=== PATIENT | male | born 1965 | race Hispanic/Latino ===

== ENCOUNTER → 2018-10-19 | Outpatient (REF) | payer OTHER, MEDICAID ==
[2018-10-19 18:09] LABS: BASO % 0.4 % (0.0-1.0); EOS # 0.2 10^3/uL (0.0-0.50); EOS % 2.8 % (0.0-3.0); HEMATOCRIT 41.5 % (42.0-52.0); HEMOGLOBIN 14.5 g/dl (13.5-17.5); LYMPH # 1.8 10^3/uL (1.5-4.5); LYMPH % 25.1 % (24.0-44.0); MEAN CORPUSCULAR HGB CONC 34.9 g/dl (32.0-36.5); MEAN CORPUSCULAR VOLUME 85.7 fl (80.0-96.0); MONO # 0.5 10^3/uL (0.0-0.8); MONO % 6.6 % (0.0-5.0); NEUTROPHILS # 4.7 10^3/uL (1.8-7.7); NEUTROPHILS % 64.7 % (36.0-66.0); PLATELET COUNT, AUTOMATED 204 10^3/uL (150-450); RED BLOOD COUNT 4.84 10^6/uL (4.30-6.10); WHITE BLOOD COUNT 7.2 10^3/uL (4.0-10.0)
[2018-10-19 18:18] LABS: ALBUMIN 3.6 GM/DL (3.2-5.2); ALT/SGPT 25 U/L (12-78); BILIRUBIN,TOTAL 0.5 MG/DL (0.2-1.0); BLOOD UREA NITROGEN 18 MG/DL (7-18); CALCIUM LEVEL 9.1 MG/DL (8.5-10.1); CARBON DIOXIDE LEVEL 27 MEQ/L (21-32); CHLORIDE LEVEL 102 MEQ/L (98-107); CHOLESTEROL LEVEL 313 MG/DL (<200); CHOLESTEROL RISK RATIO 8.236 (<5); CREATININE FOR GFR 0.86 MG/DL (0.70-1.30); FREE T4 1.08 NG/DL (0.76-1.46); GLOMERULAR FILTRATION RATE > 60.0 (>56); GLUCOSE, FASTING 280 MG/DL (70-100); HDL CHOLESTEROL 38 MG/DL (>40); LDL CHOLESTEROL 250 MG/DL (<100); NON-HDL-C 275 MG/DL; POTASSIUM SERUM 4.3 MEQ/L (3.5-5.1); SODIUM LEVEL 134 MEQ/L (136-145); TOTAL 25(OH) VITAMIN D 29.7 NG/ML (30.0-100.0); TOTAL PROTEIN 7.3 GM/DL (6.4-8.2); TRIGLYCERIDES LEVEL 127 MG/DL (<150)
[2018-10-19 18:34] LABS: HEMOGLOBIN A1c 11.5 %
== END ==
LOC: M LAB REF 17:34
PROVIDERS: ATTEND Nurse Practitioner Family
DX: Z00.01 Encounter for general adult medical examination with abnormal findings (principal)

== ENCOUNTER → 2019-01-18 | Outpatient (REF) | payer OTHER, MEDICAID ==
[2019-01-18 17:38] LABS: ALBUMIN 3.8 GM/DL (3.2-5.2); ALT/SGPT 25 U/L (12-78); BILIRUBIN,TOTAL 0.6 MG/DL (0.2-1.0); BLOOD UREA NITROGEN 17 MG/DL (7-18); CALCIUM LEVEL 9.4 MG/DL (8.5-10.1); CARBON DIOXIDE LEVEL 26 MEQ/L (21-32); CHLORIDE LEVEL 103 MEQ/L (98-107); CHOLESTEROL LEVEL 307 MG/DL (<200); CHOLESTEROL RISK RATIO 7.675 (<5); CREATININE FOR GFR 0.88 MG/DL (0.70-1.30); GLOMERULAR FILTRATION RATE > 60.0 (>56); GLUCOSE, FASTING 241 MG/DL (70-100); HDL CHOLESTEROL 40 MG/DL (>40); LDL CHOLESTEROL 253 MG/DL (<100); NON-HDL-C 267 MG/DL; POTASSIUM SERUM 4.3 MEQ/L (3.5-5.1); SODIUM LEVEL 136 MEQ/L (136-145); TOTAL PROTEIN 7.5 GM/DL (6.4-8.2); TRIGLYCERIDES LEVEL 70 MG/DL (<150)
[2019-01-18 17:48] LABS: HEMOGLOBIN A1c 10.2 %
== END ==
LOC: M LAB REF 16:25
PROVIDERS: ATTEND Nurse Practitioner Family
DX: Z00.01 Encounter for general adult medical examination with abnormal findings (principal)

== ENCOUNTER → 2019-03-23 | Outpatient (CLI) | payer MEDICAID | LOC: M OUTALCOH 07:59 | PROVIDERS: ATTEND Psychiatry & Neurology Addiction Medicine | DX: F10.10 Alcohol abuse, uncomplicated (principal) ==

== ENCOUNTER 2019-03-29 08:05 | Outpatient (RCR) | payer MEDICAID | END 2019-04-22 | LOC: M OUTALCOH 08:05 | PROVIDERS: ATTEND Psychiatry & Neurology Addiction Medicine | DX: F10.10 Alcohol abuse, uncomplicated (principal) ==

== ENCOUNTER → 2019-04-19 | Outpatient (REF) | payer MEDICAID ==
[2019-04-19 13:22] LABS: ALBUMIN 3.9 GM/DL (3.2-5.2); ALT/SGPT 32 U/L (12-78); BILIRUBIN,TOTAL 0.5 MG/DL (0.2-1.0); BLOOD UREA NITROGEN 13 MG/DL (7-18); CALCIUM LEVEL 9.1 MG/DL (8.5-10.1); CARBON DIOXIDE LEVEL 29 MEQ/L (21-32); CHLORIDE LEVEL 106 MEQ/L (98-107); CHOLESTEROL LEVEL 221 MG/DL (<200); CHOLESTEROL RISK RATIO 6.906 (<5); CREATININE FOR GFR 0.84 MG/DL (0.70-1.30); GLOMERULAR FILTRATION RATE > 60.0 (>56); GLUCOSE, FASTING 115 MG/DL (70-100); HDL CHOLESTEROL 32 MG/DL (>40); LDL CHOLESTEROL 172 MG/DL (<100); NON-HDL-C 189 MG/DL; POTASSIUM SERUM 4.1 MEQ/L (3.5-5.1); SODIUM LEVEL 139 MEQ/L (136-145); TOTAL PROTEIN 7.1 GM/DL (6.4-8.2); TRIGLYCERIDES LEVEL 83 MG/DL (<150)
[2019-04-19 13:44] LABS: HEMOGLOBIN A1c 7.9 %
== END ==
LOC: M LAB REF 11:59
PROVIDERS: ATTEND Family Medicine
DX: Z00.01 Encounter for general adult medical examination with abnormal findings (principal)

== ENCOUNTER 2022-03-09 13:56 | Inpatient (IN) | payer MEDICAID, OTHER, SELFPAY ==
[~2022-03-09] VITALS: Ht 167.6 cm; Wt 68.2 kg
[2022-03-09] MEDS ORDERED: BOOSTRIX/ADACEL VACCINE (DIPHTH/PERTUSS/ACELL/TETANUS) 0.5ML SYR IM ONE (19:45)
[2022-03-09] MEDS ORDERED: AMPICILLIN SOD/SULBACTAM SOD 3 GM in D5W MINI-BAG PLUS 100 ML IV ONE (19:45)
[2022-03-09] MEDS ORDERED: ACETAMINOPHEN 325 MG TAB PO ONE (20:00)
[2022-03-09 20:10] LABS: BASO % 0.2 % (0.0-1.0); EOS # 0.1 10^3/uL (0.0-0.5); HEMATOCRIT 32.1 % (42.0-52.0); HEMOGLOBIN 11.1 g/dl (13.5-17.5); LYMPH # 1.9 10^3/uL (1.5-5.0); LYMPH % 17.5 % (24.0-44.0); MEAN CORPUSCULAR HEMOGLOBIN 29.1 pg (27.0-33.0); MEAN CORPUSCULAR HGB CONC 34.6 g/dl (32.0-36.5); MONO # 0.5 10^3/uL (0.0-0.8); MONO % 4.6 % (2.0-8.0); NEUTROPHILS # 8.1 10^3/uL (1.5-8.5); NEUTROPHILS % 76.4 % (36.0-66.0); PLATELET COUNT, AUTOMATED 327 10^3/uL (150-450); RED BLOOD COUNT 3.82 10^6/uL (4.30-6.10); WHITE BLOOD COUNT 10.7 10^3/uL (4.0-10.0)
[2022-03-09 20:17] LABS: ERYTHROCYTE SEDIMENTATION RATE 98 mm/hr (0-20)
[2022-03-09 20:32] LABS: ALBUMIN 2.9 G/DL (3.2-5.2); ALKALINE PHOSPHATASE 144 U/L (46-116); ALT/SGPT 10 U/L (7.0-40); AST/SGOT 12 U/L (<34); BILIRUBIN,DIRECT 0.1 MG/DL (<0.4); BILIRUBIN,TOTAL 0.5 MG/DL (0.3-1.2); BLOOD UREA NITROGEN 27 MG/DL (9-23); CALCIUM LEVEL 8.6 MG/DL (8.5-10.1); CARBON DIOXIDE LEVEL 24 MMOL/L (20-31); CHLORIDE LEVEL 98 MMOL/L (98-107); CREATININE FOR GFR 1.15 MG/DL (0.70-1.30); GLOMERULAR FILTRATION RATE > 60.0 (>56); GLUCOSE, FASTING 209 MG/DL (60-100); POTASSIUM SERUM 4.3 MMOL/L (3.5-5.1); SODIUM LEVEL 132 MMOL/L (136-145); TOTAL PROTEIN 7.1 G/DL (5.7-8.2)
[2022-03-09] MEDS: NS 1,000 ML IV SCH (20:33)
[2022-03-09] MEDS ORDERED: ALEV220T22 PO (20:46)
[2022-03-09] MEDS ORDERED: HOME MED LIST COMPLETE! XX SCH (20:50)
[2022-03-09] MEDS ORDERED: INSULIN LISPRO (NovoLOG) PER UNIT SC SCH (21:00)
[2022-03-09] MEDS ORDERED: MOM 30ML SUSPENSION UDC PO PRN (22:00)
[2022-03-09 22:07] LABS: RSV AMPLIFICATION NEGATIVE (NEGATIVE)
[2022-03-09] MEDS ORDERED: VANCOMYCIN HCL 750 MG, VIAL MATE ADAPTER 1 EACH in D5W 250 ML IV ONE (23:00)
[2022-03-10] MEDS ORDERED: VANCOMYCIN HCL 750 MG, VIAL MATE ADAPTER 1 EACH in D5W 250 ML IV ONE ×3
[2022-03-10] MEDS ORDERED: GLUCOSE 4GM CHEW TABLET PO PRN (01:10)
[2022-03-10] MEDS ORDERED: GLUCAGON INJ 1MG VIAL SC PRN (01:10)
[2022-03-10] MEDS ORDERED: DEXTROSE 50% 50ML SYRINGE IV PRN (01:10)
[2022-03-10] MEDS: NS 1,000 ML IV SCH (01:43)
[2022-03-10] MEDS: VANCOMYCIN HCL 1,000 MG, VIAL MATE ADAPTER 1 EACH in NS 250 ML IV SCH ×2 (05:28→18:49)
[2022-03-10 05:46] VITALS: BP 144/68
[2022-03-10] MEDS: INSULIN LISPRO (NovoLOG) PER UNIT SC SCH ×4 (06:14→23:54)
[2022-03-10 06:19] VITALS: BP 150/67
[2022-03-10 06:58] LABS: HEMATOCRIT 29.8 % (42.0-52.0); MEAN CORPUSCULAR HEMOGLOBIN 29.2 pg (27.0-33.0); MEAN CORPUSCULAR HGB CONC 33.6 g/dl (32.0-36.5); MEAN CORPUSCULAR VOLUME 86.9 fl (80.0-96.0); PLATELET COUNT, AUTOMATED 264 10^3/uL (150-450); RED BLOOD COUNT 3.43 10^6/uL (4.30-6.10); WHITE BLOOD COUNT 8.1 10^3/uL (4.0-10.0)
[2022-03-10] MEDS ORDERED: INSULIN LISPRO (NovoLOG) PER UNIT SC ONE (07:15)
[2022-03-10 07:43] LABS: HEMOGLOBIN A1c 11.3 % (4.0-6.0)
[2022-03-10 08:01] LABS: BLOOD UREA NITROGEN 24 MG/DL (9-23); CALCIUM LEVEL 7.8 MG/DL (8.5-10.1); CARBON DIOXIDE LEVEL 24 MMOL/L (20-31); CHLORIDE LEVEL 100 MMOL/L (98-107); CREATININE FOR GFR 1.12 MG/DL (0.70-1.30); GLOMERULAR FILTRATION RATE > 60.0 (>56); GLUCOSE, FASTING 470 MG/DL (60-100); POTASSIUM SERUM 4.2 MMOL/L (3.5-5.1); SODIUM LEVEL 132 MMOL/L (136-145)
[2022-03-10] MEDS ORDERED: ENOXAPARIN 40MG/0.4ML SYRINGE (J1650 PER 10MG) SC SCH (09:00)
[2022-03-10 13:27] LABS: IRON (FE) 29 UG/DL (65-175); PERCENT SATURATION 12.3 % (19.7-50.0); TOTAL IRON BINDING CAPACITY 236 UG/DL (250-425)
[2022-03-10 13:28] LABS: FERRITIN 96.6 NG/ML (10.5-307.3); FOLATE 9.3 NG/ML (>5.4)
[2022-03-10 13:29] LABS: VITAMIN B12 LEVEL 392 PG/ML (211-911)
[2022-03-10 14:00] VITALS: BP 146/75
[2022-03-10 21:06] VITALS: BP 142/74
[2022-03-10] MEDS: ACETAMINOPHEN TAB 650MG DOSE (2X325MG) PO PRN (21:13)
[2022-03-11] VITALS (9 sets, daily range): BP systolic 129–148; BP diastolic 64–77
[2022-03-11] MEDS: INSULIN LISPRO (NovoLOG) PER UNIT SC SCH ×3 (05:25→16:57)
[2022-03-11 05:43] LABS: BASO % 0.2 % (0.0-1.0); EOS # 0.2 10^3/uL (0.0-0.5); EOS % 2.6 % (0.0-3.0); HEMATOCRIT 27.5 % (42.0-52.0); HEMOGLOBIN 9.2 g/dl (13.5-17.5); LYMPH # 2.1 10^3/uL (1.5-5.0); LYMPH % 23.1 % (24.0-44.0); MEAN CORPUSCULAR HEMOGLOBIN 28.7 pg (27.0-33.0); MEAN CORPUSCULAR HGB CONC 33.5 g/dl (32.0-36.5); MEAN CORPUSCULAR VOLUME 85.7 fl (80.0-96.0); MONO # 0.5 10^3/uL (0.0-0.8); MONO % 5.5 % (2.0-8.0); NEUTROPHILS # 6.1 10^3/uL (1.5-8.5); NEUTROPHILS % 68.3 % (36.0-66.0); PLATELET COUNT, AUTOMATED 255 10^3/uL (150-450); RED BLOOD COUNT 3.21 10^6/uL (4.30-6.10)
[2022-03-11] MEDS: VANCOMYCIN HCL 1,000 MG, VIAL MATE ADAPTER 1 EACH in NS 250 ML IV SCH ×2 (05:57→18:16)
[2022-03-11 06:15] LABS: VANCOMYCIN LEVEL TROUGH 11.6 UG/ML (10.0-20.0)
[2022-03-11 06:16] LABS: BLOOD UREA NITROGEN 16 MG/DL (9-23); CALCIUM LEVEL 8.3 MG/DL (8.5-10.1); CARBON DIOXIDE LEVEL 25 MMOL/L (20-31); CHLORIDE LEVEL 108 MMOL/L (98-107); CREATININE FOR GFR 0.92 MG/DL (0.70-1.30); GLOMERULAR FILTRATION RATE > 60.0 (>56); GLUCOSE, FASTING 120 MG/DL (60-100); POTASSIUM SERUM 4.1 MMOL/L (3.5-5.1); SODIUM LEVEL 139 MMOL/L (136-145)
[2022-03-11] MEDS ORDERED: FERRIC CARBOXYMALTOSE INJ 750 MG, VIAL MATE ADAPTER 1 EACH in NS 250 ML IV ONE (11:00)
[2022-03-11] MEDS ORDERED: LIDOCAINE 2% 100MG/5ML SDV (FOR ANES.) As Ordered ONE (14:27)
[2022-03-11] MEDS ORDERED: fentaNYL 100 MCG/2 ML INJECTION As Ordered ONE (14:27)
[2022-03-11] MEDS ORDERED: KETOROLAC 60MG 2ML VIAL As Ordered ONE (14:27)
[2022-03-11] MEDS ORDERED: propofoL 200 MG/20 ML VIAL As Ordered ONE (14:27)
[2022-03-11] MEDS ORDERED: MIDAZOLAM INJ 2MG/2ML VIAL As Ordered ONE (14:28)
[2022-03-11] MEDS ORDERED: LIDOCAINE 1% MDV 20ML VIAL INJ ONE (16:03)
[2022-03-11] MEDS ORDERED: BUPIVACAINE HCL 0.5% 10ML VIAL XX ONE (16:05)
[2022-03-11] MEDS: ACETAMINOPHEN TAB 650MG DOSE (2X325MG) PO PRN (16:46)
[2022-03-11] MEDS ORDERED: MORPHINE 2 MG/ML 1ML VIAL IV ONE (19:00)
[2022-03-11] MEDS ORDERED: PERCOCET 5MG/325MG TAB PO PRN (19:00)
[2022-03-11] MEDS ORDERED: INSULIN LISPRO (NovoLOG) PER UNIT SC SCH (21:00)
[2022-03-12] MEDS: ACETAMINOPHEN TAB 650MG DOSE (2X325MG) PO PRN (01:19)
[2022-03-12 01:40] VITALS: BP 137/74
[2022-03-12 05:40] VITALS: BP 132/78
[2022-03-12] MEDS: VANCOMYCIN HCL 1,000 MG, VIAL MATE ADAPTER 1 EACH in NS 250 ML IV SCH (05:43)
[2022-03-12] MEDS: PERCOCET 5MG/325MG TAB PO PRN ×2 (05:46→12:03)
[2022-03-12 06:18] LABS: BASO % 0.3 % (0.0-1.0); EOS # 0.3 10^3/uL (0.0-0.5); EOS % 3.7 % (0.0-3.0); HEMATOCRIT 27.2 % (42.0-52.0); HEMOGLOBIN 9.1 g/dl (13.5-17.5); LYMPH # 1.9 10^3/uL (1.5-5.0); LYMPH % 26.5 % (24.0-44.0); MEAN CORPUSCULAR HEMOGLOBIN 29.1 pg (27.0-33.0); MEAN CORPUSCULAR HGB CONC 33.5 g/dl (32.0-36.5); MEAN CORPUSCULAR VOLUME 86.9 fl (80.0-96.0); MONO # 0.5 10^3/uL (0.0-0.8); MONO % 6.8 % (2.0-8.0); NEUTROPHILS # 4.4 10^3/uL (1.5-8.5); NEUTROPHILS % 62.4 % (36.0-66.0); PLATELET COUNT, AUTOMATED 262 10^3/uL (150-450); RED BLOOD COUNT 3.13 10^6/uL (4.30-6.10)
[2022-03-12 06:36] LABS: VANCOMYCIN LEVEL TROUGH 13.4 UG/ML (10.0-20.0)
[2022-03-12 06:37] LABS: BLOOD UREA NITROGEN 23 MG/DL (9-23); CALCIUM LEVEL 8.3 MG/DL (8.5-10.1); CARBON DIOXIDE LEVEL 26 MMOL/L (20-31); CHLORIDE LEVEL 105 MMOL/L (98-107); CREATININE FOR GFR 1.16 MG/DL (0.70-1.30); GLOMERULAR FILTRATION RATE > 60.0 (>56); GLUCOSE, FASTING 107 MG/DL (60-100); POTASSIUM SERUM 4.4 MMOL/L (3.5-5.1); SODIUM LEVEL 135 MMOL/L (136-145)
[2022-03-12] MEDS: INSULIN LISPRO (NovoLOG) PER UNIT SC SCH ×2 (07:30→12:03)
[2022-03-12] MEDS ORDERED: AUGMENTIN 875 MG TAB PO SCH (09:00)
[2022-03-12 09:40] VITALS: BP 150/80
[2022-03-12] MEDS ORDERED: ENOXAPARIN 40MG/0.4ML SYRINGE (J1650 PER 10MG) SC SCH (12:35)
[2022-03-12] MEDS ORDERED: LANC30MI XX (12:45)
[2022-03-12] MEDS ORDERED: IBUP-1114 PO (12:45)
[2022-03-12] MEDS ORDERED: OXYC-517 PO (12:45)
[2022-03-12] MEDS ORDERED: GABA-1171 PO (12:45)
[2022-03-12] MEDS ORDERED: LIDO1PAD TOP (12:45)
[2022-03-12] MEDS ORDERED: INSU100I38 SQ (12:45)
[2022-03-12] MEDS ORDERED: ALCOPAD25 TOP (12:45)
[2022-03-12] MEDS ORDERED: ACET1TAB55 PO (12:45)
[2022-03-12] MEDS ORDERED: GLUC1TES2 XX (12:45)
[2022-03-12] MEDS ORDERED: BLOOKIT21 XX (12:45)
[2022-03-12] MEDS ORDERED: AMOX875T2 PO ×2 (12:45→12:46)
[2022-03-12] MEDS ORDERED: PEN1MIS21 SC (12:45)
[2022-03-12] MEDS ORDERED: METF500T13 PO (12:51)
[2022-03-12 14:00] VITALS: BP 150/79
[2022-03-12] MEDS ORDERED: GABAPENTIN 100 MG CAP PO SCH (16:00)
[2022-03-12] MEDS ORDERED: LEVEMIR (INSULIN DETEMIR) 1 UNITS/0.01ML SC SCH (21:00)
== END 2022-03-12 14:57 | disposition home health service (06) | DRG 314 ==
LOC: M ED 20:13 → M ED INP 21:56 → ENRESERV 03-10 04:44 → M MSPAV 03-10 06:19
PROVIDERS: ADMIT Family Medicine; ATTEND Student in an Organized Health Care Education/Training Program
PROC: 0Y6Y0Z0 Detachment at Left 5th Toe, Complete, Open Approach (ICD-10-PCS; principal; 2022-03-11 15:30)
DX: E11.52 Type 2 diabetes mellitus with diabetic peripheral angiopathy with gangrene (principal); E11.65 Type 2 diabetes mellitus with hyperglycemia; L03.032 Cellulitis of left toe; D50.9 Iron deficiency anemia, unspecified; Z87.891 Personal history of nicotine dependence; Z91.14 Patient's other noncompliance with medication regimen

== ENCOUNTER 2022-04-26 07:55 | Inpatient (IN) | payer MEDICAID, OTHER ==
[~2022-04-26] VITALS: Ht 167.6 cm; Wt 68.6 kg
[~2022-04-26 07:55] MED LIST: ACET1TAB55 PO; ALCOPAD25 TOP; ALEV220T22 PO; AMOX875T2 PO; BLOOKIT21 XX; GABA-1171 PO; GLUC1TES2 XX; IBUP-1114 PO; INSU100I38 SQ; LANC30MI XX; LIDO1PAD TOP; METF500T13 PO; OXYC-517 PO; PEN1MIS21 SC
[2022-04-26 08:37] LABS: BASO % 0.1 % (0.0-1.0); EOS # 0.1 10^3/uL (0.0-0.5); EOS % 1.2 % (0.0-3.0); HEMATOCRIT 27.8 % (42.0-52.0); HEMOGLOBIN 9.2 g/dl (13.5-17.5); LYMPH # 1.3 10^3/uL (1.5-5.0); LYMPH % 17.5 % (24.0-44.0); MEAN CORPUSCULAR HEMOGLOBIN 28.3 pg (27.0-33.0); MEAN CORPUSCULAR HGB CONC 33.1 g/dl (32.0-36.5); MEAN CORPUSCULAR VOLUME 85.5 fl (80.0-96.0); MONO # 0.4 10^3/uL (0.0-0.8); MONO % 5.8 % (2.0-8.0); NEUTROPHILS # 5.7 10^3/uL (1.5-8.5); NEUTROPHILS % 75.3 % (36.0-66.0); PLATELET COUNT, AUTOMATED 336 10^3/uL (150-450); RED BLOOD COUNT 3.25 10^6/uL (4.30-6.10); WHITE BLOOD COUNT 7.6 10^3/uL (4.0-10.0)
[2022-04-26] MEDS ORDERED: GI COCKTAIL 50ML BTL(HYOSCYAMINE/MAALOX/LIDOCAINE VISCOUS)(1:3:1) PO ONE (08:50)
[2022-04-26] MEDS ORDERED: NS 1,000 ML IV ONE (08:50)
[2022-04-26 09:14] LABS: ALBUMIN 2.6 G/DL (3.2-5.2); BILIRUBIN,DIRECT 0.1 MG/DL (<0.4); BILIRUBIN,TOTAL 0.6 MG/DL (0.3-1.2); TOTAL PROTEIN 6.8 G/DL (5.7-8.2)
[2022-04-26] MEDS ORDERED: ISOVUE-370 76% 100ML VIAL As Ordered ONE (09:30)
[2022-04-26] MEDS ORDERED: PIPERACILLIN/TAZOBACTAM SOD 3.375 GM in D5W MINI-BAG PLUS 50 ML IV ONE (12:40)
[2022-04-26] MEDS ORDERED: ONDANSETRON 4MG 2ML VIAL IV ONE (12:55)
[2022-04-26] MEDS ORDERED: MORPHINE 4 MG/ML 1ML VIAL IV ONE (12:55)
[2022-04-26] MEDS ORDERED: MORPHINE 10 MG/ML 1ML VIAL IV PRN (13:05)
[2022-04-26] MEDS ORDERED: DEXTROSE 50% 50ML SYRINGE IV PRN (13:10)
[2022-04-26] MEDS ORDERED: GLUCOSE 4GM CHEW TABLET PO PRN (13:10)
[2022-04-26] MEDS ORDERED: GLUCAGON INJ 1MG VIAL SC PRN (13:10)
[2022-04-26] MEDS: INSULIN LISPRO (NovoLOG) PER UNIT SC SCH ×2 (13:20→18:00)
[2022-04-26 13:43] LABS: RSV AMPLIFICATION NEGATIVE (NEGATIVE)
[2022-04-26] MEDS ORDERED: ACET1TAB55 PO (13:50)
[2022-04-26] MEDS ORDERED: HOME MED LIST COMPLETE! XX SCH (13:50)
[2022-04-26] MEDS ORDERED: METF500T13 PO (13:50)
[2022-04-26] MEDS ORDERED: IBUP1TAB5 PO (13:50)
[2022-04-26 14:58] VITALS: BP 131/83
[2022-04-26 16:56] LABS: CARCINOEMBRYONIC ANTIGEN < 2.0 NG/ML (<2.5)
[2022-04-26 17:11] LABS: CA19-9 TUMOR MARKER,CARBOHYDRA 15.4 U/ML (<35.0)
[2022-04-26] MEDS: PIPERACILLIN/TAZOBACTAM SOD 4.5 GM in D5W MINI-BAG PLUS 50 ML IV SCH (18:04)
[2022-04-26] MEDS: D5W/0.9% SODIUM CHLORIDE 1,000 ML IV SCH (20:10)
[2022-04-26 20:15] VITALS: BP 126/60
[2022-04-27] MEDS: PIPERACILLIN/TAZOBACTAM SOD 4.5 GM in D5W MINI-BAG PLUS 50 ML IV SCH ×3 (02:31→18:31)
[2022-04-27 06:00] VITALS: BP 120/56
[2022-04-27 06:41] LABS: BASO % 0.4 % (0.0-1.0); EOS # 0.2 10^3/uL (0.0-0.5); EOS % 3.8 % (0.0-3.0); HEMATOCRIT 24.2 % (42.0-52.0); HEMOGLOBIN 7.9 g/dl (13.5-17.5); LYMPH # 1.2 10^3/uL (1.5-5.0); LYMPH % 24.4 % (24.0-44.0); MEAN CORPUSCULAR HEMOGLOBIN 28.4 pg (27.0-33.0); MEAN CORPUSCULAR HGB CONC 32.6 g/dl (32.0-36.5); MEAN CORPUSCULAR VOLUME 87.1 fl (80.0-96.0); MONO # 0.3 10^3/uL (0.0-0.8); MONO % 6.1 % (2.0-8.0); NEUTROPHILS # 3.3 10^3/uL (1.5-8.5); NEUTROPHILS % 65.1 % (36.0-66.0); PLATELET COUNT, AUTOMATED 283 10^3/uL (150-450); RED BLOOD COUNT 2.78 10^6/uL (4.30-6.10); WHITE BLOOD COUNT 5.1 10^3/uL (4.0-10.0)
[2022-04-27] MEDS: INSULIN LISPRO (NovoLOG) PER UNIT SC SCH ×5 (06:55→23:41)
[2022-04-27 07:10] LABS: LIPASE 21 U/L (12-53)
[2022-04-27 07:11] LABS: TOTAL IRON BINDING CAPACITY 215 UG/DL (250-425)
[2022-04-27 07:12] LABS: IRON (FE) 21 UG/DL (65-175); PERCENT SATURATION 9.8 % (19.7-50.0)
[2022-04-27 07:26] LABS: ALBUMIN 2.1 G/DL (3.2-5.2); ALKALINE PHOSPHATASE 89 U/L (46-116); ALT/SGPT < 9 U/L (7.0-40); AST/SGOT 10 U/L (<34); BILIRUBIN,DIRECT 0.1 MG/DL (<0.4); BILIRUBIN,TOTAL 0.5 MG/DL (0.3-1.2); BLOOD UREA NITROGEN 14 MG/DL (9-23); CALCIUM LEVEL 7.9 MG/DL (8.5-10.1); CARBON DIOXIDE LEVEL 25 MMOL/L (20-31); CHLORIDE LEVEL 105 MMOL/L (98-107); FERRITIN 126.9 NG/ML (10.5-307.3); FREE THYROXINE INDEX 3.6 % (1.4-3.8); GLOMERULAR FILTRATION RATE > 60.0 (>56); GLUCOSE, FASTING 122 MG/DL (60-100); MAGNESIUM LEVEL 1.9 MG/DL (1.8-2.4); POTASSIUM SERUM 4.2 MMOL/L (3.5-5.1); SODIUM LEVEL 136 MMOL/L (136-145); T UPTAKE 43.5 % (22.5-37.0); THYROID STIMULATING HORMONE 2.116 uIU/ML (0.55-4.78); THYROXINE (T4) 8.3 UG/DL (4.5-10.9)
[2022-04-27] MEDS: D5W/0.9% SODIUM CHLORIDE 1,000 ML IV SCH ×2 (08:48→23:41)
[2022-04-27 09:21] LABS: TOTAL PROTEIN 5.7 G/DL (5.7-8.2)
[2022-04-27 10:06] LABS: HEMOGLOBIN A1c 7.5 % (4.0-6.0)
[2022-04-27 14:00] VITALS: BP 136/77
[2022-04-27 21:30] VITALS: BP 135/72
[2022-04-28] MEDS: PIPERACILLIN/TAZOBACTAM SOD 4.5 GM in D5W MINI-BAG PLUS 50 ML IV SCH ×3 (03:22→21:39)
[2022-04-28 05:20] VITALS: BP 135/70
[2022-04-28] MEDS: INSULIN LISPRO (NovoLOG) PER UNIT SC SCH ×3 (05:46→17:34)
[2022-04-28 06:10] LABS: BASO % 0.4 % (0.0-1.0); EOS # 0.1 10^3/uL (0.0-0.5); EOS % 2.9 % (0.0-3.0); HEMATOCRIT 24.2 % (42.0-52.0); HEMOGLOBIN 8.1 g/dl (13.5-17.5); MEAN CORPUSCULAR HEMOGLOBIN 28.6 pg (27.0-33.0); MEAN CORPUSCULAR HGB CONC 33.5 g/dl (32.0-36.5); MEAN CORPUSCULAR VOLUME 85.5 fl (80.0-96.0); MONO # 0.3 10^3/uL (0.0-0.8); MONO % 5.8 % (2.0-8.0); NEUTROPHILS # 3.2 10^3/uL (1.5-8.5); NEUTROPHILS % 69.7 % (36.0-66.0); PLATELET COUNT, AUTOMATED 290 10^3/uL (150-450); RED BLOOD COUNT 2.83 10^6/uL (4.30-6.10); WHITE BLOOD COUNT 4.5 10^3/uL (4.0-10.0)
[2022-04-28 06:39] LABS: LIPASE 19 U/L (12-53)
[2022-04-28 06:42] LABS: ALBUMIN 2.1 G/DL (3.2-5.2); ALKALINE PHOSPHATASE 85 U/L (46-116); ALT/SGPT < 9 U/L (7.0-40); AST/SGOT 9 U/L (<34); BILIRUBIN,TOTAL 0.3 MG/DL (0.3-1.2); BLOOD UREA NITROGEN 8 MG/DL (9-23); CALCIUM LEVEL 7.9 MG/DL (8.5-10.1); CARBON DIOXIDE LEVEL 25 MMOL/L (20-31); CHLORIDE LEVEL 106 MMOL/L (98-107); CREATININE FOR GFR 0.96 MG/DL (0.70-1.30); GLOMERULAR FILTRATION RATE > 60.0 (>56); GLUCOSE, FASTING 100 MG/DL (60-100); MAGNESIUM LEVEL 1.7 MG/DL (1.8-2.4); POTASSIUM SERUM 3.9 MMOL/L (3.5-5.1); SODIUM LEVEL 139 MMOL/L (136-145); TOTAL PROTEIN 5.7 G/DL (5.7-8.2)
[2022-04-28] MEDS: KETOROLAC 30 MG/ML 1ML VIAL IV SCH ×3 (09:42→21:35)
[2022-04-28] MEDS ORDERED: HYDROMORPHONE HCL 0.5 MG/ 0.5 ML SYRINGE IV ONE (10:40)
[2022-04-28] MEDS: D5W/0.9% SODIUM CHLORIDE 1,000 ML IV SCH ×2 (11:15→23:59)
[2022-04-28] MEDS ORDERED: MAG SULF 1GM/100ML (MAG RUN) 1 GM in IV 1 EA IV ONE (12:00)
[2022-04-28 14:00] VITALS: BP 136/70
[2022-04-28] MEDS ORDERED: MIDAZOLAM INJ 2MG/2ML VIAL As Ordered ONE (17:43)
[2022-04-28] MEDS ORDERED: ROCURONIUM BROMIDE 50MG/5ML VIAL As Ordered ONE ×2 (17:43→18:52)
[2022-04-28] MEDS ORDERED: LIDOCAINE 2% 100MG/5ML SDV (FOR ANES.) As Ordered ONE (17:43)
[2022-04-28] MEDS ORDERED: propofoL 200 MG/20 ML VIAL As Ordered ONE (17:43)
[2022-04-28] MEDS ORDERED: INDOCYANINE GREEN 25MG VIAL (IC-GREEN) As Ordered ONE (17:44)
[2022-04-28] MEDS ORDERED: LIDOCAINE 1% SDV 30ML VIAL As Ordered ONE (17:44)
[2022-04-28] MEDS ORDERED: fentaNYL 100 MCG/2 ML INJECTION As Ordered ONE (17:44)
[2022-04-28] MEDS ORDERED: BUPIVACAINE HCL 0.25% 30ML VIAL As Ordered ONE (17:44)
[2022-04-28] MEDS ORDERED: SUCCINYLCHOLINE 100MG/5ML SYRINGE As Ordered ONE (17:45)
[2022-04-28] MEDS ORDERED: ePHEDrine SULFATE 25 MG/5 ML(5MG/ML) SYRINGE As Ordered ONE (18:30)
[2022-04-28] MEDS ORDERED: ONDANSETRON 4MG 2ML VIAL As Ordered ONE (18:31)
[2022-04-28] MEDS ORDERED: ACETAMINOPHEN 1000MG 100ML IV BAG As Ordered ONE (18:31)
[2022-04-28] MEDS ORDERED: SUGAMMADEX SODIUM 500 MG/5 ML VIAL (BRIDION) As Ordered ONE (18:31)
[2022-04-28] MEDS ORDERED: METOCLOPRAMIDE INJ 10MG/2ML VIAL As Ordered ONE (18:31)
[2022-04-28] MEDS ORDERED: HYDROmorphone HCL 2MG/ML 1ML VIAL As Ordered ONE (18:40)
[2022-04-28] MEDS ORDERED: ESMOLOL INJ 100MG/10ML VIAL As Ordered ONE (18:58)
[2022-04-28] MEDS ORDERED: METOPROLOL 5 MG/5 ML VIAL As Ordered ONE (19:28)
[2022-04-28] MEDS ORDERED: HYDROMORPHONE HCL 0.5 MG/ 0.5 ML SYRINGE IV PRN (19:40)
[2022-04-28] MEDS ORDERED: ONDANSETRON 4MG 2ML VIAL IV PRN (19:40)
[2022-04-28] MEDS ORDERED: METOCLOPRAMIDE INJ 10MG/2ML VIAL IV PRN (19:40)
[2022-04-28] MEDS ORDERED: fentaNYL 100 MCG/2 ML INJECTION IV PRN (19:40)
[2022-04-28] MEDS ORDERED: oxyCODONE 5MG TAB PO PRN (19:40)
[2022-04-28] MEDS ORDERED: LR 1,000 ML IV SCH (19:40)
[2022-04-28 21:12] LABS: SOURCE, BODY FLUID ASCITES
[2022-04-28 21:13] LABS: APPEARANCE, BODY FLUID CLOUDY (CLEAR); ASCITES FL COLOR PINK (COLORLESS)
[2022-04-28 21:30] VITALS: BP 127/61
[2022-04-28 22:00] VITALS: BP 122/61
[2022-04-28 22:17] LABS: SOURCE, BODY FLUID ALBUMIN ASCITES
[2022-04-28 22:22] LABS: SOURCE, BODY FLUID GLUCOSE ASCITES
[2022-04-28 22:24] LABS: SOURCE, BODY FLUID TOT PROTEIN ASCITES; TOTAL PROTEIN, BODY FLUID 4.2 G/DL (NOT ESTABLISHED)
[2022-04-28 23:00] VITALS: BP 123/61
[2022-04-29] VITALS: BP 129/61
[2022-04-29 01:00] VITALS: BP 130/63
[2022-04-29 02:00] VITALS: BP 132/64
[2022-04-29] MEDS: KETOROLAC 30 MG/ML 1ML VIAL IV SCH ×4 (03:29→21:00)
[2022-04-29] MEDS: PIPERACILLIN/TAZOBACTAM SOD 4.5 GM in D5W MINI-BAG PLUS 50 ML IV SCH (03:32)
[2022-04-29 06:00] VITALS: BP 144/73
[2022-04-29 06:20] LABS: BASO % 0.4 % (0.0-1.0); EOS # 0.1 10^3/uL (0.0-0.5); EOS % 1.7 % (0.0-3.0); HEMATOCRIT 24.6 % (42.0-52.0); HEMOGLOBIN 7.9 g/dl (13.5-17.5); LYMPH # 1.5 10^3/uL (1.5-5.0); LYMPH % 28.2 % (24.0-44.0); MEAN CORPUSCULAR HEMOGLOBIN 27.9 pg (27.0-33.0); MEAN CORPUSCULAR HGB CONC 32.1 g/dl (32.0-36.5); MEAN CORPUSCULAR VOLUME 86.9 fl (80.0-96.0); MONO # 0.3 10^3/uL (0.0-0.8); MONO % 5.8 % (2.0-8.0); NEUTROPHILS # 3.3 10^3/uL (1.5-8.5); NEUTROPHILS % 63.5 % (36.0-66.0); PLATELET COUNT, AUTOMATED 254 10^3/uL (150-450); RED BLOOD COUNT 2.83 10^6/uL (4.30-6.10); WHITE BLOOD COUNT 5.2 10^3/uL (4.0-10.0)
[2022-04-29] MEDS: INSULIN LISPRO (NovoLOG) PER UNIT SC SCH ×4 (06:36→17:30)
[2022-04-29 06:45] LABS: LIPASE 19 U/L (12-53)
[2022-04-29 07:01] LABS: ALKALINE PHOSPHATASE 87 U/L (46-116); ALT/SGPT < 9 U/L (7.0-40); AST/SGOT 13 U/L (<34); BILIRUBIN,TOTAL 0.4 MG/DL (0.3-1.2); BLOOD UREA NITROGEN 11 MG/DL (9-23); CALCIUM LEVEL 7.8 MG/DL (8.5-10.1); CARBON DIOXIDE LEVEL 24 MMOL/L (20-31); CHLORIDE LEVEL 106 MMOL/L (98-107); CREATININE FOR GFR 1.47 MG/DL (0.70-1.30); GLOMERULAR FILTRATION RATE 52.6 (>56); GLUCOSE, FASTING 107 MG/DL (60-100); MAGNESIUM LEVEL 1.7 MG/DL (1.8-2.4); SODIUM LEVEL 137 MMOL/L (136-145); TOTAL PROTEIN 5.4 G/DL (5.7-8.2)
[2022-04-29] MEDS ORDERED: MAG SULF 1GM/100ML (MAG RUN) 1 GM in IV 1 EA IV ONE (10:00)
[2022-04-29 14:00] VITALS: BP 143/69
[2022-04-29] MEDS: D5W/0.9% SODIUM CHLORIDE 1,000 ML IV SCH (14:02)
[2022-04-29 20:00] VITALS: BP 151/78
[2022-04-29] MEDS ORDERED: INSULIN LISPRO (NovoLOG) PER UNIT SC SCH (21:00)
[2022-04-30] MEDS: D5W/0.9% SODIUM CHLORIDE 1,000 ML IV SCH (02:49)
[2022-04-30] MEDS: KETOROLAC 30 MG/ML 1ML VIAL IV SCH ×2 (04:26→08:10)
[2022-04-30 06:00] VITALS: BP 151/78
[2022-04-30 06:14] LABS: BASO % 0.2 % (0.0-1.0); EOS # 0.2 10^3/uL (0.0-0.5); EOS % 4.3 % (0.0-3.0); HEMATOCRIT 26.3 % (42.0-52.0); HEMOGLOBIN 8.3 g/dl (13.5-17.5); LYMPH # 1.3 10^3/uL (1.5-5.0); LYMPH % 23.8 % (24.0-44.0); MEAN CORPUSCULAR HEMOGLOBIN 27.7 pg (27.0-33.0); MEAN CORPUSCULAR HGB CONC 31.6 g/dl (32.0-36.5); MEAN CORPUSCULAR VOLUME 87.7 fl (80.0-96.0); MONO # 0.3 10^3/uL (0.0-0.8); NEUTROPHILS # 3.5 10^3/uL (1.5-8.5); NEUTROPHILS % 65.3 % (36.0-66.0); PLATELET COUNT, AUTOMATED 310 10^3/uL (150-450); WHITE BLOOD COUNT 5.3 10^3/uL (4.0-10.0)
[2022-04-30 06:41] LABS: LIPASE 20 U/L (12-53)
[2022-04-30 06:50] LABS: ALKALINE PHOSPHATASE 90 U/L (46-116); ALT/SGPT < 9 U/L (7.0-40); AST/SGOT 12 U/L (<34); BILIRUBIN,TOTAL 0.3 MG/DL (0.3-1.2); BLOOD UREA NITROGEN 13 MG/DL (9-23); CARBON DIOXIDE LEVEL 25 MMOL/L (20-31); CHLORIDE LEVEL 109 MMOL/L (98-107); CREATININE FOR GFR 1.22 MG/DL (0.70-1.30); GLOMERULAR FILTRATION RATE > 60.0 (>56); GLUCOSE, FASTING 118 MG/DL (60-100); MAGNESIUM LEVEL 1.8 MG/DL (1.8-2.4); POTASSIUM SERUM 4.2 MMOL/L (3.5-5.1); SODIUM LEVEL 138 MMOL/L (136-145); TOTAL PROTEIN 5.5 G/DL (5.7-8.2)
[2022-04-30] MEDS: INSULIN LISPRO (NovoLOG) PER UNIT SC SCH ×2 (08:11→12:20)
[2022-05-04] MEDS ORDERED: OXYC-517 (11:14)
== END 2022-04-30 14:08 | disposition home or self-care (01) | DRG 229 ==
LOC: M ED 07:55 → M ED INP 13:02 → ENRESERV 14:10 → M MSPAV 14:49
PROVIDERS: ADMIT General Practice; ATTEND Family Medicine
PROC: 0D9 Gastrointestinal System, Drainage (ICD-10-PCS; 2022-04-28)
PROC: 8E0W4CZ Robotic Assisted Procedure of Trunk Region, Percutaneous Endoscopic Approach (ICD-10-PCS; 2022-04-28)
PROC: 0DBU4ZX Excision of Omentum, Percutaneous Endoscopic Approach, Diagnostic (ICD-10-PCS; principal; 2022-04-28 09:05)
DX: C78.6 Secondary malignant neoplasm of retroperitoneum and peritoneum (principal); R18.8 Other ascites; E11.40 Type 2 diabetes mellitus with diabetic neuropathy, unspecified; B19.10 Unspecified viral hepatitis B without hepatic coma; M50.222 Other cervical disc displacement at C5-C6 level; D50.9 Iron deficiency anemia, unspecified; N52.9 Male erectile dysfunction, unspecified; I70.0 Atherosclerosis of aorta; I25.10 Atherosclerotic heart disease of native coronary artery without angina pectoris; R63.4 Abnormal weight loss; R91.8 Other nonspecific abnormal finding of lung field; Z79.84 Long term (current) use of oral hypoglycemic drugs; Z89.422 Acquired absence of other left toe(s); Z87.891 Personal history of nicotine dependence

== ENCOUNTER → 2022-05-13 | Outpatient (CLI) | payer OTHER ==
[~2022-05-13] MED LIST changes: +IBUP1TAB5 PO; +LIDOCAINE 1% MDV 20ML VIAL As Ordered ONE; +MIDAZOLAM INJ 2MG/2ML VIAL As Ordered ONE; +NS 1,000 ML IV SCH; +OXYC-517; +ceFAZolin 2 GM/D5W 50 ML IV BAG As Ordered ONE; +ceFAZolin SOD 2 GM in IV 1 EA IV ONE; +diphenhydrAMINE 50MG/ML VIAL As Ordered ONE; +fentaNYL 100 MCG/2 ML INJECTION As Ordered ONE
[2022-05-13 11:47] LABS: BASO % 0.4 % (0.0-1.0); EOS # 0.2 10^3/uL (0.0-0.5); EOS % 2.5 % (0.0-3.0); HEMATOCRIT 30.1 % (42.0-52.0); HEMOGLOBIN 9.7 g/dl (13.5-17.5); LYMPH # 1.3 10^3/uL (1.5-5.0); LYMPH % 19.6 % (24.0-44.0); MEAN CORPUSCULAR HEMOGLOBIN 27.7 pg (27.0-33.0); MEAN CORPUSCULAR HGB CONC 32.2 g/dl (32.0-36.5); MONO # 0.4 10^3/uL (0.0-0.8); MONO % 6.2 % (2.0-8.0); NEUTROPHILS # 4.8 10^3/uL (1.5-8.5); PLATELET COUNT, AUTOMATED 376 10^3/uL (150-450); WHITE BLOOD COUNT 6.8 10^3/uL (4.0-10.0)
[2022-05-13 11:58] LABS: INR 1.09; PROTHROMBIN TIME 14.3 SECONDS (12.5-14.5)
[2022-05-13 11:59] LABS: PARTIAL THROMBOPLASTIN TIME 31.5 SECONDS (24.8-34.2)
[2022-05-13 12:21] LABS: IRON (FE) 29 UG/DL (65-175); PERCENT SATURATION 10.4 % (19.7-50.0); TOTAL IRON BINDING CAPACITY 280 UG/DL (250-425)
[2022-05-13 12:24] LABS: ALBUMIN 3.1 G/DL (3.2-5.2); ALKALINE PHOSPHATASE 123 U/L (46-116); ALT/SGPT 10 U/L (7.0-40); AST/SGOT 15 U/L (<34); BILIRUBIN,TOTAL 0.6 MG/DL (0.3-1.2); BLOOD UREA NITROGEN 23 MG/DL (9-23); CALCIUM LEVEL 9.3 MG/DL (8.5-10.1); CARBON DIOXIDE LEVEL 29 MMOL/L (20-31); CARCINOEMBRYONIC ANTIGEN < 2.0 NG/ML (<2.5); CHLORIDE LEVEL 101 MMOL/L (98-107); CREATININE FOR GFR 1.11 MG/DL (0.70-1.30); FERRITIN 98.9 NG/ML (10.5-307.3); FOLATE 11.1 NG/ML (>5.4); GLOMERULAR FILTRATION RATE > 60.0 (>56); GLUCOSE, FASTING 107 MG/DL (60-100); POTASSIUM SERUM 4.4 MMOL/L (3.5-5.1); SODIUM LEVEL 137 MMOL/L (136-145); TOTAL PROTEIN 7.2 G/DL (5.7-8.2); VITAMIN B12 LEVEL 350 PG/ML (211-911)
[2022-05-13 15:30] VITALS: BP 166/74
== END ==
LOC: M IRPRO 10:46
PROVIDERS: ATTEND Specialist
DX: C76.2 Malignant neoplasm of abdomen (principal)
CPT/HCPCS: 36415; 36561; 80053; 82378; 82607; 82728; 82746; 83550; 85025; 85610; 85730; 86304; 99152; 99153; C1769; C1788; C1894; J0690; J1200; J1642; J1644; J2250; J3010

== ENCOUNTER → 2022-05-25 | Outpatient (CLI) | payer OTHER ==
[~2022-05-25] MED LIST changes: -LIDOCAINE 1% MDV 20ML VIAL As Ordered ONE; -MIDAZOLAM INJ 2MG/2ML VIAL As Ordered ONE; -NS 1,000 ML IV SCH; -ceFAZolin 2 GM/D5W 50 ML IV BAG As Ordered ONE; -ceFAZolin SOD 2 GM in IV 1 EA IV ONE; -diphenhydrAMINE 50MG/ML VIAL As Ordered ONE; -fentaNYL 100 MCG/2 ML INJECTION As Ordered ONE
== END ==
LOC: M PLARAD 13:32
PROVIDERS: ATTEND Specialist
DX: C76.2 Malignant neoplasm of abdomen (principal)
CPT/HCPCS: 78815; A9552

== ENCOUNTER → 2022-06-16 | Outpatient (POV) | payer OTHER ==
[~2022-06-16] VITALS: Ht 165.1 cm; Wt 69.5 kg
[2022-06-16 13:25] VITALS: BP 139/79
== END ==
LOC: M IRPOV 13:04
PROVIDERS: ATTEND Radiology Diagnostic Radiology
DX: Z45.2 Encounter for adjustment and management of vascular access device (principal)

== ENCOUNTER 2022-06-27 09:12 | Emergency (ER) | payer MEDICAID, OTHER ==
[~2022-06-27] VITALS: Ht 167.6 cm; Wt 71.2 kg
[2022-06-27] MEDS ORDERED: NS 1,000 ML IV ONE (11:20)
[2022-06-27 12:02] LABS: BASO % 0.3 % (0.0-1.0); EOS # 0.1 10^3/uL (0.0-0.5); EOS % 1.9 % (0.0-3.0); HEMOGLOBIN 11.1 g/dl (13.5-17.5); LYMPH # 1.6 10^3/uL (1.5-5.0); LYMPH % 27.5 % (24.0-44.0); MEAN CORPUSCULAR HEMOGLOBIN 27.1 pg (27.0-33.0); MEAN CORPUSCULAR HGB CONC 32.6 g/dl (32.0-36.5); MEAN CORPUSCULAR VOLUME 83.1 fl (80.0-96.0); MONO # 0.3 10^3/uL (0.0-0.8); MONO % 5.9 % (2.0-8.0); NEUTROPHILS # 3.7 10^3/uL (1.5-8.5); NEUTROPHILS % 64.1 % (36.0-66.0); PLATELET COUNT, AUTOMATED 327 10^3/uL (150-450); RED BLOOD COUNT 4.09 10^6/uL (4.30-6.10); WHITE BLOOD COUNT 5.8 10^3/uL (4.0-10.0)
[2022-06-27] MEDS ORDERED: ISOVUE-370 76% 100ML VIAL As Ordered ONE (12:06)
[2022-06-27 12:15] LABS: INR 1.02; PROTHROMBIN TIME 13.6 SECONDS (12.5-14.5)
[2022-06-27 12:16] LABS: PARTIAL THROMBOPLASTIN TIME 33.1 SECONDS (24.8-34.2)
[2022-06-27 12:33] LABS: CK-MB VALUE MASS < 1.0 NG/ML (<3.6); LIPASE 29 U/L (12-53)
[2022-06-27 12:34] LABS: CPK CREATINE PHOSPHOKINASE 72 U/L (46-171); MB/CK RELATIVE INDEX 1.38 (< OR =4)
[2022-06-27 12:35] LABS: ALBUMIN 2.8 G/DL (3.2-5.2); ALKALINE PHOSPHATASE 117 U/L (46-116); ALT/SGPT 11 U/L (7.0-40); AST/SGOT 16 U/L (<34); BILIRUBIN,DIRECT 0.1 MG/DL (<0.4); BILIRUBIN,TOTAL 0.5 MG/DL (0.3-1.2); RSV AMPLIFICATION NEGATIVE (NEGATIVE); TOTAL PROTEIN 6.6 G/DL (5.7-8.2)
[2022-06-27] MEDS ORDERED: ONDANSETRON 4MG ORAL DISINTEGRATING TAB PO ONE (14:55)
[2022-06-27] MEDS ORDERED: PERCOCET 5MG/325MG TAB PO ONE (14:55)
[2022-06-27 15:30] VITALS: BP 127/73
[2022-06-27] MEDS ORDERED: ONDA4TAB6 PO (15:34)
[2022-06-27] MEDS ORDERED: PERC5TAB12 PO (15:34)
== END 2022-06-27 15:47 | disposition home or self-care (01) ==
LOC: M ED 09:12
DX: C16.9 Malignant neoplasm of stomach, unspecified (principal); R18.0 Malignant ascites; R10.9 Unspecified abdominal pain; G89.29 Other chronic pain; E11.9 Type 2 diabetes mellitus without complications; D50.9 Iron deficiency anemia, unspecified; N52.9 Male erectile dysfunction, unspecified; Z87.891 Personal history of nicotine dependence
CPT/HCPCS: 71045; 74177; 80047; 80076; 81001; 82550; 82553; 83605; 83690; 85025; 85610; 85730; 86850; 86900; 86901; 87040; 87631; 93005; 93041; 96360; 96361; 99284; Q9967

== ENCOUNTER 2022-06-29 09:02 | Emergency (ER) | payer OTHER ==
[~2022-06-29] VITALS: Ht 167.6 cm; Wt 77.3 kg
[~2022-06-29 09:02] MED LIST changes: +ONDA4TAB6 PO; +PERC5TAB12 PO
[2022-06-29 11:13] LABS: BASO % 0.2 % (0.0-1.0); EOS # 0.1 10^3/uL (0.0-0.5); EOS % 2.1 % (0.0-3.0); HEMATOCRIT 32.7 % (42.0-52.0); HEMOGLOBIN 10.8 g/dl (13.5-17.5); LYMPH # 1.5 10^3/uL (1.5-5.0); LYMPH % 25.6 % (24.0-44.0); MEAN CORPUSCULAR HEMOGLOBIN 27.4 pg (27.0-33.0); MONO # 0.4 10^3/uL (0.0-0.8); MONO % 6.4 % (2.0-8.0); NEUTROPHILS # 3.7 10^3/uL (1.5-8.5); NEUTROPHILS % 65.3 % (36.0-66.0); PLATELET COUNT, AUTOMATED 301 10^3/uL (150-450); RED BLOOD COUNT 3.94 10^6/uL (4.30-6.10); WHITE BLOOD COUNT 5.7 10^3/uL (4.0-10.0)
[2022-06-29 11:44] LABS: ALBUMIN 2.6 G/DL (3.2-5.2); ALKALINE PHOSPHATASE 117 U/L (46-116); ALT/SGPT 10 U/L (7.0-40); AST/SGOT 16 U/L (<34); BILIRUBIN,DIRECT 0.1 MG/DL (<0.4); BILIRUBIN,TOTAL 0.5 MG/DL (0.3-1.2); BLOOD UREA NITROGEN 18 MG/DL (9-23); CALCIUM LEVEL 8.7 MG/DL (8.5-10.1); CARBON DIOXIDE LEVEL 26 MMOL/L (20-31); CHLORIDE LEVEL 106 MMOL/L (98-107); CREATININE FOR GFR 1.12 MG/DL (0.70-1.30); GLOMERULAR FILTRATION RATE > 60.0 (>56); GLUCOSE, FASTING 91 MG/DL (60-100); POTASSIUM SERUM 4.2 MMOL/L (3.5-5.1); SODIUM LEVEL 138 MMOL/L (136-145); TOTAL PROTEIN 6.3 G/DL (5.7-8.2)
[2022-06-29 15:59] VITALS: BP 139/76
== END 2022-06-29 16:06 | disposition home or self-care (01) ==
LOC: M ED 09:02
DX: R18.8 Other ascites (principal); R10.9 Unspecified abdominal pain; R11.0 Nausea; R63.0 Anorexia; C26.9 Malignant neoplasm of ill-defined sites within the digestive system; E11.9 Type 2 diabetes mellitus without complications; Z86.19 Personal history of other infectious and parasitic diseases; Z79.899 Other long term (current) drug therapy

== ENCOUNTER → 2022-06-30 | Outpatient (CLI) | payer OTHER ==
[2022-06-30 14:58] LABS: ASCITES FL COLOR PALE YELLOW (COLORLESS); SOURCE, BODY FLUID ASCITES
[2022-06-30 14:59] LABS: APPEARANCE, BODY FLUID HAZY (CLEAR)
[2022-06-30 15:00] VITALS: BP 132/63
[2022-06-30 15:02] LABS: SOURCE, BODY FLUID ALBUMIN ASCITES
[2022-06-30 15:07] LABS: SOURCE, BODY FLUID GLUCOSE ASCITES
[2022-06-30 15:09] LABS: SOURCE, BODY FLUID TOT PROTEIN ASCITES; TOTAL PROTEIN, BODY FLUID 4.4 G/DL (NOT ESTABLISHED)
== END ==
LOC: M IRPRO 12:36
PROVIDERS: ATTEND Physician Assistant
DX: R18.8 Other ascites (principal); R10.9 Unspecified abdominal pain

== ENCOUNTER → 2022-07-17 | Outpatient (CLI) | payer OTHER ==
[~2022-07-17] MED LIST changes: +ERGO500029 PO; +FERR324T21 PO; +FOLI1TAB11 PO; +OMEP40CA5
[2022-07-17 14:44] VITALS: BP 134/70
== END ==
LOC: M IRPRO 13:33
PROVIDERS: ATTEND Internal Medicine Hematology & Oncology
DX: R18.8 Other ascites (principal)

== ENCOUNTER 2022-08-07 16:03 | Inpatient (IN) | payer OTHER ==
[~2022-08-07] VITALS: Ht 167.6 cm; Wt 65.9 kg
[~2022-08-07 16:03] MED LIST changes: +BACL10TA2 PO; -OMEP40CA5; +OMEP40CA5 PO
[2022-08-07] MEDS ORDERED: NS 500 ML IV ONE (16:55)
[2022-08-07] MEDS ORDERED: ONDANSETRON 4MG 2ML VIAL IV ONE (16:55)
[2022-08-07 17:44] LABS: BASO % 0.3 % (0.0-1.0); EOS % 0.5 % (0.0-3.0); HEMATOCRIT 27.8 % (42.0-52.0); HEMOGLOBIN 8.8 g/dl (13.5-17.5); LYMPH # 1.1 10^3/uL (1.5-5.0); LYMPH % 17.6 % (24.0-44.0); MEAN CORPUSCULAR HEMOGLOBIN 25.6 pg (27.0-33.0); MEAN CORPUSCULAR HGB CONC 31.7 g/dl (32.0-36.5); MEAN CORPUSCULAR VOLUME 80.8 fl (80.0-96.0); MONO # 0.3 10^3/uL (0.0-0.8); MONO % 5.1 % (2.0-8.0); NEUTROPHILS # 4.9 10^3/uL (1.5-8.5); NEUTROPHILS % 76.3 % (36.0-66.0); PLATELET COUNT, AUTOMATED 433 10^3/uL (150-450); RED BLOOD COUNT 3.44 10^6/uL (4.30-6.10); WHITE BLOOD COUNT 6.4 10^3/uL (4.0-10.0)
[2022-08-07] MEDS ORDERED: ISOVUE-370 76% 100ML VIAL As Ordered ONE (17:52)
[2022-08-07 18:02] LABS: INR 1.05; PROTHROMBIN TIME 13.9 SECONDS (12.5-14.5)
[2022-08-07 18:03] LABS: PARTIAL THROMBOPLASTIN TIME 33.8 SECONDS (24.8-34.2)
[2022-08-07 18:09] LABS: LIPASE 29 U/L (12-53)
[2022-08-07 18:11] LABS: AMYLASE 53 U/L (30-118)
[2022-08-07 18:12] LABS: ALBUMIN 2.2 G/DL (3.2-5.2); ALKALINE PHOSPHATASE 94 U/L (46-116); ALT/SGPT 10 U/L (7.0-40); AST/SGOT 13 U/L (<34); BILIRUBIN,DIRECT 0.1 MG/DL (<0.4); BILIRUBIN,TOTAL 0.4 MG/DL (0.3-1.2); BLOOD UREA NITROGEN 32 MG/DL (9-23); CALCIUM LEVEL 7.8 MG/DL (8.5-10.1); CARBON DIOXIDE LEVEL 33 MMOL/L (20-31); CHLORIDE LEVEL 99 MMOL/L (98-107); CREATININE FOR GFR 1.15 MG/DL (0.70-1.30); GLOMERULAR FILTRATION RATE > 60.0 (>56); GLUCOSE, FASTING 90 MG/DL (60-100); POTASSIUM SERUM 3.6 MMOL/L (3.5-5.1); SODIUM LEVEL 135 MMOL/L (136-145); TOTAL PROTEIN 6.4 G/DL (5.7-8.2)
[2022-08-07] MEDS ORDERED: PANTOPRAZOLE 40MG VIAL IV ONE (19:30)
[2022-08-07] MEDS ORDERED: BACL10TA2 PO (20:16)
[2022-08-07] MEDS ORDERED: med rec comment (20:17)
[2022-08-07] MEDS ORDERED: HOME MED LIST COMPLETE! XX SCH (20:20)
[2022-08-07] MEDS ORDERED: LR 1,000 ML IV SCH (22:00)
[2022-08-07] MEDS ORDERED: ACETAMINOPHEN TAB 650MG DOSE (2X325MG) PO PRN (22:00)
[2022-08-07 23:40] VITALS: BP 135/62; TEMP 98.4; O2SAT 98
[2022-08-08] VITALS (13 sets, daily range): BP systolic 101–139; BP diastolic 55–67; TEMP 96.8–98.6; O2SAT 93–100
[2022-08-08] MEDS: ONDANSETRON 4MG 2ML VIAL IV PRN ×2 (04:28→08:56)
[2022-08-08 06:18] LABS: HEMATOCRIT 25.2 % (42.0-52.0); HEMOGLOBIN 7.9 g/dl (13.5-17.5); MEAN CORPUSCULAR HEMOGLOBIN 25.6 pg (27.0-33.0); MEAN CORPUSCULAR HGB CONC 31.3 g/dl (32.0-36.5); MEAN CORPUSCULAR VOLUME 81.6 fl (80.0-96.0); PLATELET COUNT, AUTOMATED 394 10^3/uL (150-450); RED BLOOD COUNT 3.09 10^6/uL (4.30-6.10); WHITE BLOOD COUNT 4.1 10^3/uL (4.0-10.0)
[2022-08-08 06:37] LABS: ALKALINE PHOSPHATASE 84 U/L (46-116); ALT/SGPT 9 U/L (7.0-40); AST/SGOT 13 U/L (<34); BILIRUBIN,TOTAL 0.3 MG/DL (0.3-1.2); BLOOD UREA NITROGEN 27 MG/DL (9-23); CALCIUM LEVEL 7.6 MG/DL (8.5-10.1); CARBON DIOXIDE LEVEL 32 MMOL/L (20-31); CHLORIDE LEVEL 101 MMOL/L (98-107); CREATININE FOR GFR 1.01 MG/DL (0.70-1.30); GLOMERULAR FILTRATION RATE > 60.0 (>56); GLUCOSE, FASTING 73 MG/DL (60-100); MAGNESIUM LEVEL 1.8 MG/DL (1.8-2.4); POTASSIUM SERUM 3.7 MMOL/L (3.5-5.1); SODIUM LEVEL 137 MMOL/L (136-145); TOTAL PROTEIN 5.7 G/DL (5.7-8.2)
[2022-08-08] MEDS ORDERED: D10W 1,000 ML IV SCH (08:05)
[2022-08-08] MEDS: PANTOPRAZOLE 40MG VIAL IV SCH ×2 (08:48→21:59)
[2022-08-08] MEDS ORDERED: BACLOFEN 10 MG TAB PO SCH (09:00)
[2022-08-08] MEDS ORDERED: FOLIC ACID 1MG TAB PO SCH (09:00)
[2022-08-08 12:43] LABS: HEMATOCRIT 23.8 % (42.0-52.0); HEMOGLOBIN 7.6 g/dl (13.5-17.5); MEAN CORPUSCULAR HEMOGLOBIN 25.8 pg (27.0-33.0); MEAN CORPUSCULAR HGB CONC 31.9 g/dl (32.0-36.5); MEAN CORPUSCULAR VOLUME 80.7 fl (80.0-96.0); PLATELET COUNT, AUTOMATED 359 10^3/uL (150-450); RED BLOOD COUNT 2.95 10^6/uL (4.30-6.10); WHITE BLOOD COUNT 4.8 10^3/uL (4.0-10.0)
[2022-08-08] MEDS: D5W/0.9% SODIUM CHLORIDE 1,000 ML IV SCH (15:24)
[2022-08-08 16:47] LABS: ALBUMIN 2.1 G/DL (3.2-5.2); ALKALINE PHOSPHATASE 87 U/L (46-116); ALT/SGPT < 9 U/L (7.0-40); AST/SGOT 10 U/L (<34); BILIRUBIN,TOTAL 0.4 MG/DL (0.3-1.2); BLOOD UREA NITROGEN 24 MG/DL (9-23); CALCIUM LEVEL 8.3 MG/DL (8.5-10.1); CARBON DIOXIDE LEVEL 30 MMOL/L (20-31); CHLORIDE LEVEL 100 MMOL/L (98-107); CREATININE FOR GFR 0.98 MG/DL (0.70-1.30); GLOMERULAR FILTRATION RATE > 60.0 (>56); GLUCOSE, FASTING 101 MG/DL (60-100); MAGNESIUM LEVEL 1.7 MG/DL (1.8-2.4); PHOSPHORUS LEVEL 2.9 MG/DL (2.5-4.9); POTASSIUM SERUM 3.9 MMOL/L (3.5-5.1); SODIUM LEVEL 137 MMOL/L (136-145); TOTAL PROTEIN 6.2 G/DL (5.7-8.2)
[2022-08-08 23:32] LABS: HEMATOCRIT 31.1 % (42.0-52.0)
[2022-08-08 23:48] LABS: HEMOGLOBIN 10.3 g/dl (13.5-17.5)
[2022-08-09 02:00] VITALS: BP 124/64; TEMP 97.9; O2SAT 97
[2022-08-09] MEDS: D5W/0.9% SODIUM CHLORIDE 1,000 ML IV SCH ×3 (03:45→11:21)
[2022-08-09 06:00] VITALS: BP 135/68; TEMP 97.7; O2SAT 96
[2022-08-09 06:02] LABS: HEMATOCRIT 33.1 % (42.0-52.0); HEMOGLOBIN 10.8 g/dl (13.5-17.5); MEAN CORPUSCULAR HEMOGLOBIN 26.3 pg (27.0-33.0); MEAN CORPUSCULAR HGB CONC 32.6 g/dl (32.0-36.5); MEAN CORPUSCULAR VOLUME 80.5 fl (80.0-96.0); PLATELET COUNT, AUTOMATED 330 10^3/uL (150-450); RED BLOOD COUNT 4.11 10^6/uL (4.30-6.10); WHITE BLOOD COUNT 4.7 10^3/uL (4.0-10.0)
[2022-08-09 06:25] LABS: ALBUMIN 1.8 G/DL (3.2-5.2); ALKALINE PHOSPHATASE 77 U/L (46-116); ALT/SGPT < 9 U/L (7.0-40); AST/SGOT 13 U/L (<34); BILIRUBIN,TOTAL 0.7 MG/DL (0.3-1.2); BLOOD UREA NITROGEN 19 MG/DL (9-23); CALCIUM LEVEL 7.8 MG/DL (8.5-10.1); CARBON DIOXIDE LEVEL 30 MMOL/L (20-31); CHLORIDE LEVEL 106 MMOL/L (98-107); CREATININE FOR GFR 1.02 MG/DL (0.70-1.30); GLOMERULAR FILTRATION RATE > 60.0 (>56); GLUCOSE, FASTING 96 MG/DL (60-100); POTASSIUM SERUM 3.8 MMOL/L (3.5-5.1); SODIUM LEVEL 141 MMOL/L (136-145); TOTAL PROTEIN 5.3 G/DL (5.7-8.2)
[2022-08-09 07:35] LABS: MAGNESIUM LEVEL 1.7 MG/DL (1.8-2.4)
[2022-08-09] MEDS: PANTOPRAZOLE 40MG VIAL IV SCH ×2 (09:20→20:13)
[2022-08-09 10:00] VITALS: BP 129/66; TEMP 97.9; O2SAT 98
[2022-08-09] MEDS ORDERED: CHLORASEPTIC SPRAY MT PRN (11:00)
[2022-08-09] MEDS ORDERED: MAG SULF 1GM/100ML (MAG RUN) 1 GM in IV 1 EA IV ONE (12:00)
[2022-08-09 14:00] VITALS: BP 127/69; TEMP 97.9; O2SAT 98
[2022-08-09 18:00] VITALS: BP 126/67; TEMP 98.1; O2SAT 98
[2022-08-09] MEDS ORDERED: FAT EMULSION IV 250 ML IV ONE (18:00)
[2022-08-09] MEDS: INSULIN LISPRO (NovoLOG) PER UNIT SC SCH ×2 (18:00→23:43)
[2022-08-09] MEDS ORDERED: AMINO AC/ELECTROLYTE/DEX/CALC 2,000 ML IV SCH (18:00)
[2022-08-09 20:00] VITALS: BP 134/72; TEMP 98.2; O2SAT 98
[2022-08-10 02:00] VITALS: BP 126/70; TEMP 97.1; O2SAT 97
[2022-08-10] MEDS: INSULIN LISPRO (NovoLOG) PER UNIT SC SCH ×4 (05:56→23:57)
[2022-08-10 06:00] VITALS: BP 141/90; TEMP 97; O2SAT 98
[2022-08-10 06:13] LABS: HEMOGLOBIN 11.1 g/dl (13.5-17.5); MEAN CORPUSCULAR HEMOGLOBIN 26.6 pg (27.0-33.0); MEAN CORPUSCULAR HGB CONC 32.6 g/dl (32.0-36.5); MEAN CORPUSCULAR VOLUME 81.5 fl (80.0-96.0); PLATELET COUNT, AUTOMATED 352 10^3/uL (150-450); RED BLOOD COUNT 4.17 10^6/uL (4.30-6.10); WHITE BLOOD COUNT 5.1 10^3/uL (4.0-10.0)
[2022-08-10 06:39] LABS: TOTAL IRON BINDING CAPACITY 215 UG/DL (250-425)
[2022-08-10 06:40] LABS: IRON (FE) 15 UG/DL (65-175)
[2022-08-10 06:43] LABS: ALBUMIN 1.9 G/DL (3.2-5.2); ALKALINE PHOSPHATASE 77 U/L (46-116); ALT/SGPT < 9 U/L (7.0-40); AST/SGOT 9 U/L (<34); BILIRUBIN,TOTAL 0.3 MG/DL (0.3-1.2); BLOOD UREA NITROGEN 19 MG/DL (9-23); CALCIUM LEVEL 8.4 MG/DL (8.5-10.1); CARBON DIOXIDE LEVEL 26 MMOL/L (20-31); CHLORIDE LEVEL 108 MMOL/L (98-107); CREATININE FOR GFR 0.91 MG/DL (0.70-1.30); FERRITIN 151.8 NG/ML (10.5-307.3); GLOMERULAR FILTRATION RATE > 60.0 (>56); GLUCOSE, FASTING 143 MG/DL (60-100); MAGNESIUM LEVEL 1.9 MG/DL (1.8-2.4); POTASSIUM SERUM 4.1 MMOL/L (3.5-5.1); SODIUM LEVEL 140 MMOL/L (136-145); TOTAL PROTEIN 5.7 G/DL (5.7-8.2)
[2022-08-10] MEDS: ONDANSETRON 4MG 2ML VIAL IV PRN ×3 (08:06→18:14)
[2022-08-10] MEDS: PANTOPRAZOLE 40MG VIAL IV SCH ×2 (08:06→20:05)
[2022-08-10] MEDS ORDERED: MORPHINE 2 MG/ML 1ML VIAL IV ONE (08:35)
[2022-08-10] MEDS ORDERED: FERROUS GLUCONATE 324 MG TAB PO SCH (09:00)
[2022-08-10 10:00] VITALS: BP 135/72; TEMP 97.9; O2SAT 97
[2022-08-10] MEDS ORDERED: MORPHINE 2 MG/ML 1ML VIAL IV PRN (12:15)
[2022-08-10] MEDS ORDERED: E-Z-PAQUE 96% w/w SUSP 176GM BTL As Ordered ONE (12:31)
[2022-08-10 13:30] LABS: APPEARANCE, BODY FLUID CLEAR (CLEAR); ASCITES FL COLOR YELLOW (COLORLESS); SOURCE, BODY FLUID ASCITES
[2022-08-10 14:00] VITALS: BP 132/72; TEMP 97.9; O2SAT 90
[2022-08-10] MEDS: MORPHINE 2 MG/ML 1ML VIAL IV PRN ×2 (14:05→18:15)
[2022-08-10 14:44] LABS: SOURCE, BODY FLUID ALBUMIN ASCITES
[2022-08-10 14:49] LABS: SOURCE, BODY FLUID GLUCOSE ASCITES
[2022-08-10 14:51] LABS: SOURCE, BODY FLUID TOT PROTEIN ASCITES; TOTAL PROTEIN, BODY FLUID 3.4 G/DL (NOT ESTABLISHED)
[2022-08-10 18:00] VITALS: BP 149/76; TEMP 97.7; O2SAT 97
[2022-08-10] MEDS ORDERED: FAT EMULSION IV 250 ML IV ONE (18:00)
[2022-08-10] MEDS ORDERED: MULTIVITAMIN -ADULT INJECTION 10 ML, ZINC/COPPER/MANGANESE/SELENIUM 1 ML in AMINO AC/EL... IV SCH (18:00)
[2022-08-10 21:29] VITALS: BP 114/69; TEMP 98.1; O2SAT 96
[2022-08-11] VITALS (10 sets, daily range): BP systolic 109–147; BP diastolic 59–79; TEMP 97–98.8; O2SAT 97–100
[2022-08-11] MEDS ORDERED: NS 1,000 ML IV ONE (06:00)
[2022-08-11 06:03] LABS: HEMATOCRIT 35.1 % (42.0-52.0); HEMOGLOBIN 11.2 g/dl (13.5-17.5); MEAN CORPUSCULAR HEMOGLOBIN 26.3 pg (27.0-33.0); MEAN CORPUSCULAR HGB CONC 31.9 g/dl (32.0-36.5); MEAN CORPUSCULAR VOLUME 82.4 fl (80.0-96.0); PLATELET COUNT, AUTOMATED 330 10^3/uL (150-450); RED BLOOD COUNT 4.26 10^6/uL (4.30-6.10); WHITE BLOOD COUNT 5.2 10^3/uL (4.0-10.0)
[2022-08-11 06:25] LABS: ALBUMIN 1.7 G/DL (3.2-5.2); ALKALINE PHOSPHATASE 76 U/L (46-116); ALT/SGPT < 9 U/L (7.0-40); AST/SGOT 9 U/L (<34); BILIRUBIN,TOTAL 0.3 MG/DL (0.3-1.2); BLOOD UREA NITROGEN 25 MG/DL (9-23); CALCIUM LEVEL 7.8 MG/DL (8.5-10.1); CARBON DIOXIDE LEVEL 25 MMOL/L (20-31); CHLORIDE LEVEL 108 MMOL/L (98-107); CREATININE FOR GFR 0.89 MG/DL (0.70-1.30); GLOMERULAR FILTRATION RATE > 60.0 (>56); GLUCOSE, FASTING 128 MG/DL (60-100); SODIUM LEVEL 138 MMOL/L (136-145); TOTAL PROTEIN 5.5 G/DL (5.7-8.2)
[2022-08-11] MEDS: INSULIN LISPRO (NovoLOG) PER UNIT SC SCH ×3 (06:33→18:00)
[2022-08-11] MEDS: PANTOPRAZOLE 40MG VIAL IV SCH ×2 (10:16→20:22)
[2022-08-11] MEDS: ONDANSETRON 4MG 2ML VIAL IV PRN (14:06)
[2022-08-11] MEDS ORDERED: AMINO AC/ELECTROLYTE/DEX/CALC 2,000 ML IV SCH (18:00)
[2022-08-11] MEDS ORDERED: FAT EMULSION IV 250 ML IV ONE (18:00)
[2022-08-12] MEDS: ONDANSETRON 4MG 2ML VIAL IV PRN ×4 (00:11→18:25)
[2022-08-12] MEDS: INSULIN LISPRO (NovoLOG) PER UNIT SC SCH ×5 (00:12→23:54)
[2022-08-12 02:00] VITALS: BP 129/67; TEMP 98.1; O2SAT 98
[2022-08-12] MEDS: MORPHINE 2 MG/ML 1ML VIAL IV PRN (05:30)
[2022-08-12 06:00] VITALS: BP 122/69; TEMP 98.2; O2SAT 98
[2022-08-12 06:28] LABS: BASO % 0.4 % (0.0-1.0); EOS # 0.1 10^3/uL (0.0-0.5); EOS % 1.6 % (0.0-3.0); HEMATOCRIT 33.5 % (42.0-52.0); HEMOGLOBIN 10.7 g/dl (13.5-17.5); LYMPH # 1.4 10^3/uL (1.5-5.0); MEAN CORPUSCULAR HEMOGLOBIN 26.6 pg (27.0-33.0); MEAN CORPUSCULAR HGB CONC 31.9 g/dl (32.0-36.5); MEAN CORPUSCULAR VOLUME 83.1 fl (80.0-96.0); MONO # 0.4 10^3/uL (0.0-0.8); MONO % 5.8 % (2.0-8.0); NEUTROPHILS % 71.8 % (36.0-66.0); PLATELET COUNT, AUTOMATED 318 10^3/uL (150-450); RED BLOOD COUNT 4.03 10^6/uL (4.30-6.10)
[2022-08-12 07:10] LABS: ALBUMIN 1.7 G/DL (3.2-5.2); ALKALINE PHOSPHATASE 83 U/L (46-116); ALT/SGPT < 9 U/L (7.0-40); AST/SGOT 10 U/L (<34); BILIRUBIN,TOTAL 0.3 MG/DL (0.3-1.2); BLOOD UREA NITROGEN 29 MG/DL (9-23); CALCIUM LEVEL 8.5 MG/DL (8.5-10.1); CARBON DIOXIDE LEVEL 23 MMOL/L (20-31); CHLORIDE LEVEL 107 MMOL/L (98-107); CREATININE FOR GFR 0.89 MG/DL (0.70-1.30); GLOMERULAR FILTRATION RATE > 60.0 (>56); GLUCOSE, FASTING 141 MG/DL (60-100); MAGNESIUM LEVEL 1.8 MG/DL (1.8-2.4); POTASSIUM SERUM 4.3 MMOL/L (3.5-5.1); SODIUM LEVEL 137 MMOL/L (136-145); TOTAL PROTEIN 5.6 G/DL (5.7-8.2)
[2022-08-12] MEDS: PANTOPRAZOLE 40MG VIAL IV SCH ×2 (09:19→20:06)
[2022-08-12 10:00] VITALS: BP 123/68; TEMP 97.9; O2SAT 100
[2022-08-12] MEDS ORDERED: METOCLOPRAMIDE INJ 10MG/2ML VIAL IV PRN (12:15)
[2022-08-12 14:00] VITALS: BP 126/68; TEMP 97.5; O2SAT 99
[2022-08-12 18:00] VITALS: BP 134/70; TEMP 98.2; O2SAT 99
[2022-08-12] MEDS ORDERED: MULTIVITAMIN -ADULT INJECTION 10 ML, ZINC/COPPER/MANGANESE/SELENIUM 1 ML in AMINO AC/EL... IV SCH (18:00)
[2022-08-12] MEDS ORDERED: FAT EMULSION IV 250 ML IV ONE (18:00)
[2022-08-12 21:00] VITALS: BP 111/64; TEMP 97.7; O2SAT 97
[2022-08-13 02:00] VITALS: BP 133/72; TEMP 98.2; O2SAT 98
[2022-08-13 05:30] VITALS: BP 110/54; TEMP 97.5; O2SAT 99
[2022-08-13 06:05] LABS: BASO % 0.2 % (0.0-1.0); EOS # 0.1 10^3/uL (0.0-0.5); EOS % 1.7 % (0.0-3.0); HEMATOCRIT 33.7 % (42.0-52.0); HEMOGLOBIN 10.9 g/dl (13.5-17.5); LYMPH # 1.6 10^3/uL (1.5-5.0); MEAN CORPUSCULAR HEMOGLOBIN 26.5 pg (27.0-33.0); MEAN CORPUSCULAR HGB CONC 32.3 g/dl (32.0-36.5); MEAN CORPUSCULAR VOLUME 81.8 fl (80.0-96.0); MONO # 0.4 10^3/uL (0.0-0.8); MONO % 4.6 % (2.0-8.0); NEUTROPHILS % 73.3 % (36.0-66.0); PLATELET COUNT, AUTOMATED 322 10^3/uL (150-450); RED BLOOD COUNT 4.12 10^6/uL (4.30-6.10); WHITE BLOOD COUNT 8.2 10^3/uL (4.0-10.0)
[2022-08-13] MEDS: ONDANSETRON 4MG 2ML VIAL IV PRN (06:09)
[2022-08-13] MEDS: INSULIN LISPRO (NovoLOG) PER UNIT SC SCH ×4 (06:09→23:50)
[2022-08-13 07:01] LABS: ALBUMIN 1.8 G/DL (3.2-5.2); ALKALINE PHOSPHATASE 97 U/L (46-116); ALT/SGPT 10 U/L (7.0-40); AST/SGOT 10 U/L (<34); BILIRUBIN,TOTAL 0.4 MG/DL (0.3-1.2); BLOOD UREA NITROGEN 33 MG/DL (9-23); CALCIUM LEVEL 8.8 MG/DL (8.5-10.1); CARBON DIOXIDE LEVEL 23 MMOL/L (20-31); CHLORIDE LEVEL 109 MMOL/L (98-107); CREATININE FOR GFR 0.93 MG/DL (0.70-1.30); GLOMERULAR FILTRATION RATE > 60.0 (>56); GLUCOSE, FASTING 162 MG/DL (60-100); MAGNESIUM LEVEL 1.9 MG/DL (1.8-2.4); POTASSIUM SERUM 4.2 MMOL/L (3.5-5.1); SODIUM LEVEL 138 MMOL/L (136-145)
[2022-08-13] MEDS ORDERED: PROMETHAZINE 25MG/ML 1ML VIAL IV PRN (07:45)
[2022-08-13] MEDS: PANTOPRAZOLE 40MG VIAL IV SCH ×2 (09:42→20:21)
[2022-08-13] MEDS: SALIVA SUBSTITUTE(MOUTHKOTE) BTL MT PRN ×2 (09:46→20:26)
[2022-08-13 10:00] VITALS: BP 133/69; TEMP 97.5; O2SAT 99
[2022-08-13 14:00] VITALS: BP 132/69; TEMP 98.1; O2SAT 98
[2022-08-13] MEDS ORDERED: LIDOCAINE 1% MDV 20ML VIAL As Ordered ONE (14:51)
[2022-08-13] MEDS ORDERED: SODIUM CHLORIDE 0.9% INJ 10 ML SYR IV PRN (16:20)
[2022-08-13] MEDS: SODIUM CHLORIDE 0.9% INJ 10 ML SYR IV SCH (17:48)
[2022-08-13 18:00] VITALS: BP 133/58; TEMP 97.5; O2SAT 100
[2022-08-13] MEDS ORDERED: AMINO AC/ELECTROLYTE/DEX/CALC 2,000 ML IV SCH ×2 (18:00)
[2022-08-13] MEDS ORDERED: FAT EMULSION IV 250 ML IV ONE ×2 (18:00)
[2022-08-13] MEDS ORDERED: INSULIN LISPRO (NovoLOG) PER UNIT SC SCH (18:00)
[2022-08-14 02:00] VITALS: BP 105/51; TEMP 98.1; O2SAT 97
[2022-08-14 05:00] LABS: BASO % 0.4 % (0.0-1.0); EOS # 0.2 10^3/uL (0.0-0.5); EOS % 2.2 % (0.0-3.0); HEMATOCRIT 32.7 % (42.0-52.0); HEMOGLOBIN 10.8 g/dl (13.5-17.5); LYMPH # 1.2 10^3/uL (1.5-5.0); LYMPH % 16.7 % (24.0-44.0); MEAN CORPUSCULAR HEMOGLOBIN 26.9 pg (27.0-33.0); MEAN CORPUSCULAR VOLUME 81.5 fl (80.0-96.0); MONO # 0.5 10^3/uL (0.0-0.8); MONO % 6.9 % (2.0-8.0); NEUTROPHILS # 5.2 10^3/uL (1.5-8.5); NEUTROPHILS % 73.5 % (36.0-66.0); PLATELET COUNT, AUTOMATED 328 10^3/uL (150-450); RED BLOOD COUNT 4.01 10^6/uL (4.30-6.10); WHITE BLOOD COUNT 7.1 10^3/uL (4.0-10.0)
[2022-08-14 05:29] VITALS: BP 147/83; TEMP 98.2; O2SAT 98
[2022-08-14] MEDS: INSULIN LISPRO (NovoLOG) PER UNIT SC SCH ×3 (05:51→17:39)
[2022-08-14] MEDS: SODIUM CHLORIDE 0.9% INJ 10 ML SYR IV SCH ×2 (05:52→17:39)
[2022-08-14] MEDS: PANTOPRAZOLE 40MG VIAL IV SCH ×2 (08:56→20:04)
[2022-08-14 10:00] VITALS: BP 113/56; TEMP 97.9; O2SAT 100
[2022-08-14 14:00] VITALS: BP 124/67; TEMP 97.7; O2SAT 99
[2022-08-14 18:00] VITALS: BP 125/68; TEMP 97.7; O2SAT 98
[2022-08-14] MEDS ORDERED: FAT EMULSION IV 250 ML IV ONE (18:00)
[2022-08-14] MEDS ORDERED: MULTIVITAMIN -ADULT INJECTION 10 ML, ZINC/COPPER/MANGANESE/SELENIUM 1 ML in AMINO AC/EL... IV SCH (18:00)
[2022-08-14] MEDS: ONDANSETRON 4MG 2ML VIAL IV PRN (20:07)
[2022-08-14 20:24] VITALS: BP 121/69; TEMP 96.8; O2SAT 98
[2022-08-15] VITALS (7 sets, daily range): BP systolic 124–133; BP diastolic 66–87; TEMP 97.2–98.8; O2SAT 96–99
[2022-08-15] MEDS: INSULIN LISPRO (NovoLOG) PER UNIT SC SCH ×4 (00:07→18:07)
[2022-08-15] MEDS: ONDANSETRON 4MG 2ML VIAL IV PRN ×2 (05:57→18:24)
[2022-08-15] MEDS: MORPHINE 2 MG/ML 1ML VIAL IV PRN ×2 (05:57→21:22)
[2022-08-15] MEDS: SODIUM CHLORIDE 0.9% INJ 10 ML SYR IV SCH ×2 (05:58→18:08)
[2022-08-15 06:41] LABS: BASO % 0.4 % (0.0-1.0); EOS # 0.2 10^3/uL (0.0-0.5); EOS % 2.1 % (0.0-3.0); HEMATOCRIT 36.1 % (42.0-52.0); HEMOGLOBIN 11.5 g/dl (13.5-17.5); LYMPH # 1.8 10^3/uL (1.5-5.0); LYMPH % 25.5 % (24.0-44.0); MEAN CORPUSCULAR HGB CONC 31.9 g/dl (32.0-36.5); MEAN CORPUSCULAR VOLUME 81.7 fl (80.0-96.0); MONO # 0.3 10^3/uL (0.0-0.8); MONO % 4.8 % (2.0-8.0); NEUTROPHILS # 4.8 10^3/uL (1.5-8.5); NEUTROPHILS % 66.9 % (36.0-66.0); PLATELET COUNT, AUTOMATED 350 10^3/uL (150-450); RED BLOOD COUNT 4.42 10^6/uL (4.30-6.10); WHITE BLOOD COUNT 7.2 10^3/uL (4.0-10.0)
[2022-08-15 07:13] LABS: BLOOD UREA NITROGEN 48 MG/DL (9-23); CALCIUM LEVEL 9.2 MG/DL (8.5-10.1); CARBON DIOXIDE LEVEL 21 MMOL/L (20-31); CHLORIDE LEVEL 107 MMOL/L (98-107); GLOMERULAR FILTRATION RATE > 60.0 (>56); GLUCOSE, FASTING 207 MG/DL (60-100); POTASSIUM SERUM 4.6 MMOL/L (3.5-5.1); SODIUM LEVEL 135 MMOL/L (136-145)
[2022-08-15] MEDS: PANTOPRAZOLE 40MG VIAL IV SCH ×2 (08:13→21:11)
[2022-08-15] MEDS: ONDANSETRON 4MG ORAL DISINTEGRATING TAB PO SCH ×2 (12:47→21:11)
[2022-08-15] MEDS ORDERED: FAT EMULSION IV 250 ML IV ONE (18:00)
[2022-08-15] MEDS ORDERED: AMINO AC/ELECTROLYTE/DEX/CALC 2,000 ML IV SCH (18:00)
[2022-08-16] VITALS (8 sets, daily range): BP systolic 88–134; BP diastolic 40–87; TEMP 97.7–100.9; O2SAT 95–99
[2022-08-16] MEDS: INSULIN LISPRO (NovoLOG) PER UNIT SC SCH ×4 (00:08→17:43)
[2022-08-16 05:56] LABS: BASO % 0.3 % (0.0-1.0); EOS # 0.2 10^3/uL (0.0-0.5); HEMATOCRIT 35.9 % (42.0-52.0); HEMOGLOBIN 11.7 g/dl (13.5-17.5); LYMPH # 1.2 10^3/uL (1.5-5.0); LYMPH % 18.8 % (24.0-44.0); MEAN CORPUSCULAR HEMOGLOBIN 26.5 pg (27.0-33.0); MEAN CORPUSCULAR HGB CONC 32.6 g/dl (32.0-36.5); MEAN CORPUSCULAR VOLUME 81.4 fl (80.0-96.0); MONO # 0.4 10^3/uL (0.0-0.8); MONO % 6.2 % (2.0-8.0); NEUTROPHILS # 4.5 10^3/uL (1.5-8.5); NEUTROPHILS % 71.5 % (36.0-66.0); PLATELET COUNT, AUTOMATED 343 10^3/uL (150-450); RED BLOOD COUNT 4.41 10^6/uL (4.30-6.10); WHITE BLOOD COUNT 6.3 10^3/uL (4.0-10.0)
[2022-08-16] MEDS: SODIUM CHLORIDE 0.9% INJ 10 ML SYR IV SCH ×2 (06:31→17:43)
[2022-08-16] MEDS: ONDANSETRON 4MG ORAL DISINTEGRATING TAB PO SCH ×3 (06:31→22:49)
[2022-08-16] MEDS: PANTOPRAZOLE 40MG VIAL IV SCH ×2 (08:26→22:48)
[2022-08-16] MEDS ORDERED: AMINO AC/ELECTROLYTE/DEX/CALC 2,000 ML IV SCH (18:00)
[2022-08-16] MEDS ORDERED: FAT EMULSION IV 250 ML IV ONE (18:00)
[2022-08-16] MEDS ORDERED: ACETAMINOPHEN 1000MG 100ML IV BAG IV ONE (19:10)
[2022-08-16] MEDS ORDERED: SALIVA SUBSTITUTE(MOUTHKOTE) BTL MT PRN (20:15)
[2022-08-16] MEDS ORDERED: LR 1,000 ML IV ONE ×2 (21:35→23:00)
[2022-08-16 21:54] LABS: HEMATOCRIT 32.9 % (42.0-52.0); HEMOGLOBIN 11.1 g/dl (13.5-17.5); MEAN CORPUSCULAR HEMOGLOBIN 27.1 pg (27.0-33.0); MEAN CORPUSCULAR HGB CONC 33.7 g/dl (32.0-36.5); MEAN CORPUSCULAR VOLUME 80.2 fl (80.0-96.0); PLATELET COUNT, AUTOMATED 326 10^3/uL (150-450); WHITE BLOOD COUNT 11.4 10^3/uL (4.0-10.0)
[2022-08-16 22:26] LABS: CALCIUM LEVEL 8.4 MG/DL (8.5-10.1); CREATININE FOR GFR 1.39 MG/DL (0.70-1.30); GLOMERULAR FILTRATION RATE 56.1 (>56); MAGNESIUM LEVEL 1.9 MG/DL (1.8-2.4); POTASSIUM SERUM 4.6 MMOL/L (3.5-5.1)
[2022-08-16 22:50] LABS: LYMPHOCYTES 3 % (16-44); MONOCYTES 2 % (0-5); NEUTROPHILS 84 % (28-66); PLATELET ESTIMATE NORMAL (NORMAL)
[2022-08-17] MEDS ORDERED: cefTRIAXone SOD 2 GM in D5W MINI-BAG PLUS 50 ML IV SCH ×2
[2022-08-17] MEDS ORDERED: NS 1,000 ML IV SCH
[2022-08-17 00:08] LABS: APPEARANCE, URINE HAZY (CLEAR); BACTERIA, URINE AUTO NEGATIVE (NEGATIVE); BILIRUBIN, URINE AUTO NEGATIVE (NEGATIVE); BLOOD, URINE BLOOD NEGATIVE (NEGATIVE); COLOR, URINE YELLOW (YELLOW); GLUCOSE, URINE (UA) AUTO NEGATIVE (NEGATIVE); GRANULAR CAST, URINE AUTO 8 /LPF; KETONE, URINE AUTO NEGATIVE (NEGATIVE); LEUKOCYTE ESTERASE, URINE AUTO NEGATIVE (NEGATIVE); MUCUS, URINE SMALL (NEGATIVE); NITRITE, URINE AUTO NEGATIVE (NEGATIVE); PROTEIN, URINE AUTO 1+ mg/dL (NEGATIVE); RBC, URINE AUTO 2 /HPF (0-3); SPECIFIC GRAVITY URINE AUTO 1.019 (1.002-1.035); SQUAMOUS EPITHELIAL CELL UR AU 0 /HPF (0-6); UROBILINOGEN, URINE AUTO 0.2 mg/dL (0.0-2.0); WBC, URINE AUTO 1 /HPF (0-3)
[2022-08-17] MEDS: INSULIN LISPRO (NovoLOG) PER UNIT SC SCH ×2 (00:09→05:55)
[2022-08-17] MEDS ORDERED: VANCOMYCIN HCL 750 MG, VIAL MATE ADAPTER 1 EACH in D5W 250 ML IV ONE (01:30)
[2022-08-17 01:41] VITALS: BP 130/62; TEMP 98.2; O2SAT 97
[2022-08-17] MEDS ORDERED: VANCOMYCIN HCL 500 MG in D5W MINI-BAG PLUS 100 ML IV ONE (02:30)
[2022-08-17] MEDS: MORPHINE 2 MG/ML 1ML VIAL IV PRN (04:11)
[2022-08-17] MEDS: ONDANSETRON 4MG ORAL DISINTEGRATING TAB PO SCH (05:50)
[2022-08-17 05:53] VITALS: BP 108/66; TEMP 98.1; O2SAT 98
[2022-08-17] MEDS: SODIUM CHLORIDE 0.9% INJ 10 ML SYR IV SCH (06:00)
[2022-08-17 07:55] LABS: HEMATOCRIT 30.9 % (42.0-52.0); HEMOGLOBIN 10.4 g/dl (13.5-17.5); MEAN CORPUSCULAR HGB CONC 33.7 g/dl (32.0-36.5); MEAN CORPUSCULAR VOLUME 80.3 fl (80.0-96.0); PLATELET COUNT, AUTOMATED 312 10^3/uL (150-450); RED BLOOD COUNT 3.85 10^6/uL (4.30-6.10)
[2022-08-17 08:11] LABS: ALBUMIN 1.8 G/DL (3.2-5.2); ALKALINE PHOSPHATASE 154 U/L (46-116); ALT/SGPT 25 U/L (7.0-40); AST/SGOT 10 U/L (<34); BILIRUBIN,TOTAL 0.3 MG/DL (0.3-1.2); BLOOD UREA NITROGEN 65 MG/DL (9-23); CALCIUM LEVEL 8.1 MG/DL (8.5-10.1); CARBON DIOXIDE LEVEL 18 MMOL/L (20-31); CHLORIDE LEVEL 107 MMOL/L (98-107); CREATININE FOR GFR 1.12 MG/DL (0.70-1.30); GLOMERULAR FILTRATION RATE > 60.0 (>56); GLUCOSE, FASTING 189 MG/DL (60-100); MAGNESIUM LEVEL 1.9 MG/DL (1.8-2.4); POTASSIUM SERUM 4.2 MMOL/L (3.5-5.1); SODIUM LEVEL 132 MMOL/L (136-145); TOTAL PROTEIN 6.1 G/DL (5.7-8.2)
[2022-08-17 08:24] LABS: ANISOCYTOSIS 1+; LYMPHOCYTES 16 % (16-44); MONOCYTES 5 % (0-5); NEUTROPHILS 71 % (28-66); PLATELET ESTIMATE NORMAL (NORMAL)
[2022-08-17 08:26] LABS: OVALOCYTES 1+
[2022-08-17 08:27] LABS: HELMET CELLS 1+; POIKILOCYTOSIS 1+
[2022-08-17] MEDS: PANTOPRAZOLE 40MG VIAL IV SCH (08:58)
[2022-08-17 09:07] LABS: PROCALCITONIN 5.05 ng/ml
[2022-08-17 10:00] VITALS: BP 108/60; TEMP 98.1; O2SAT 98
[2022-08-17] MEDS ORDERED: VANCOMYCIN HCL 750 MG, VIAL MATE ADAPTER 1 EACH in D5W 250 ML IV SCH (11:00)
[2022-08-17] MEDS ORDERED: MORPHINE 10MG/0.5ML ORAL CONCENTRATE SOLUTION U/D SL PRN (11:45)
[2022-08-17] MEDS ORDERED: LORazepam 1 MG TAB PO PRN (11:45)
[2022-08-17] MEDS: ONDANSETRON 4MG ORAL DISINTEGRATING TAB PO PRN (17:15)
[2022-08-18] MEDS: ONDANSETRON 4MG ORAL DISINTEGRATING TAB PO PRN (00:41)
[2022-08-18] MEDS ORDERED: HYOS125TA PO (10:30)
[2022-08-18] MEDS ORDERED: MORP1SOL5 PO (10:30)
[2022-08-18] MEDS ORDERED: ATIV1TAB10 PO (10:30)
[2022-08-18] MEDS ORDERED: ONDA4TAB6 PO (10:33)
== END 2022-08-18 12:54 | disposition hospice, home (50) | DRG 240 ==
LOC: M ED 16:03 → M ED INP 21:56 → ENRESERV 22:53 → M MSPAV 23:50
PROVIDERS: ADMIT Internal Medicine; ATTEND Internal Medicine Nephrology
PROC: 30233N1 Transfusion of Nonautologous Red Blood Cells into Peripheral Vein, Percutaneous Approach (ICD-10-PCS; 2022-08-08)
PROC: 0DB68ZX Excision of Stomach, Via Natural or Artificial Opening Endoscopic, Diagnostic (ICD-10-PCS; 2022-08-11)
PROC: 0DB78ZX Excision of Stomach, Pylorus, Via Natural or Artificial Opening Endoscopic, Diagnostic (ICD-10-PCS; principal; 2022-08-11 14:15)
PROC: 02HV33Z Insertion of Infusion Device into Superior Vena Cava, Percutaneous Approach (ICD-10-PCS; 2022-08-13)
PROC: 3E0436Z Introduction of Nutritional Substance into Central Vein, Percutaneous Approach (ICD-10-PCS; 2022-08-13)
DX: C16.2 Malignant neoplasm of body of stomach (principal); R18.0 Malignant ascites; A41.9 Sepsis, unspecified organism; R64 Cachexia; E43 Unspecified severe protein-calorie malnutrition; N17.9 Acute kidney failure, unspecified; C77.2 Secondary and unspecified malignant neoplasm of intra-abdominal lymph nodes; C78.6 Secondary malignant neoplasm of retroperitoneum and peritoneum; E11.649 Type 2 diabetes mellitus with hypoglycemia without coma; M50.222 Other cervical disc displacement at C5-C6 level; Z51.5 Encounter for palliative care; K56.7 Ileus, unspecified; D62 Acute posthemorrhagic anemia; K92.2 Gastrointestinal hemorrhage, unspecified; R62.7 Adult failure to thrive; C18.9 Malignant neoplasm of colon, unspecified; D50.9 Iron deficiency anemia, unspecified; R93.3 Abnormal findings on diagnostic imaging of other parts of digestive tract; Z66 Do not resuscitate; N52.9 Male erectile dysfunction, unspecified; K21.00 Gastro-esophageal reflux disease with esophagitis, without bleeding; Z89.422 Acquired absence of other left toe(s); Z87.891 Personal history of nicotine dependence; Z79.899 Other long term (current) drug therapy